=== PATIENT | male | born 1950 | race Caucasian/White ===

== ENCOUNTER 2020-07-16 08:19 | Outpatient (CLI) | payer MEDICARE, OTHER, SELFPAY ==
--- NOTE | 2020-07-23 13:09 | WPDHOMESLEEP ---
Sleep Study - Home Unattended Date of Study: 07/16/20 Ordering Provider: Juan Steward MD Interpreting Provider: Dina Hugo MD Home Sleep Study Type: Apnea Link Air Height: 1.78 m Weight: 104.326 kg Body Mass Index: 33.0 Neck Circumference (inches): 19 [place]: 5 Reason for Sleep Study Nonrestorative sleep, tired in the morning Sleep History Orville Hong is a 70-year-old man who has had poor sleep for 10-15 years. He never feels rested in the morning. He wakes up throughout the night. He has a difficult time waking in the morning. He occasionally snores and occasionally this is loud enough that others complain about it. He does not awaken from sleep feeling short of breath or having heartburn or belching. He does not have trouble sleep with a cold. He does not wake up gasping for breath at night. He rarely has breathing problems at night observed by others. He rarely sweats excessively at night or notices heart pounding or beating irregularly at night. He rarely falls asleep during the day never involuntarily and never while driving. He does not lose muscle tone with strong emotion. He does not have daytime difficulties due to excessive sleepiness. He does not feel paralyzed on waking or falling asleep and does not have vivid dreamlike scenes upon awakening or falling asleep. He does not feel afraid to go to sleep. He rarely has nightmares. He occasionally remembers his dreams. He rarely has racing thoughts. He does not feel sad or depressed. He rarely has anxiety. He really is muscular tension. He does not notice parts of his body jerking. He occasionally kicks at night. He rarely has crawling aching feelings in his legs. He does not have leg pain at night. He denies morning jaw pain and denies grinding his teeth during sleep. He occasionally has bothered by pain during the day. He rarely is awakened by pain at night. He occasionally wakes up feeling stiff in the morning with sore achy muscles. He does not wake up with pain in the neck and spine. He always has difficulty with sexual function. Normal bedtime is midnight, falling asleep within 5-10 minutes, waking 3 or 4 times at night. He rolls over and returns to sleep without problems within a few minutes. He wakes in the morning at 8:00 a.m.. On the weekends, his schedule is the same. He estimates 5 hours of sleep at night during this 8 hour window. He does not take naps. A short nap 10 or 15 minutes long on occasion may be refreshing. Most of the time he feels good the morning. Habits: Quit tobacco 21 years ago. Caffeine 6 8 cups per day. Alcohol 2 or 3 every other day. [facility] Past Medical History Medical History Cataract History of chicken pox History of measles Hypertension Type 2 diabetes mellitus with hyperglycemia Family History Family History (Updated 03/16/20 @ 10:30 by Sana Freitas [facility]) Father Family history of cardiovascular disease Mother No problems noted. Other Diabetes mellitus Family history of Alzheimer's disease Hypertension Social History Social History Smoking end date: 03/26/99 Alcohol intake: current Medications Home Medications Medication Instructions Recorded Confirmed Type fluticasone propionate 50 2 spray NASAL DAILY #9.9 ml 02/17/19 07/21/20 Rx mcg/actuation nasal spray,suspension aspirin 81 mg tablet,delayed 81 mg PO DAILY 02/24/19 07/21/20 History release calcium carb-vit D3-minerals 600 1 tablet PO BID 06/26/19 07/21/20 History mg calcium-400 unit tablet pen needle, diabetic 31 gauge x #400 each 01/01/20 07/21/20 Rx 06/08 metformin 1,000 mg tablet 1,000 mg PO BID 90 Days #180 tablet 01/06/20 07/21/20 Rx fenofibrate nanocrystallized 145 145 mg PO DAILY #90 tablet 02/24/20 07/21/20 Rx mg tablet metoprolol succinate 50 mg 50 mg
[2020-07-23 13:19] VITALS: BMI 33.0
== END 2020-07-16 08:20 | disposition home or self-care (01) ==
LOC: ANHCSM 08:19
PROVIDERS: PCP Family Medicine; Visit Provider Family Medicine
DX: G47.33 Obstructive sleep apnea (adult) (pediatric) (principal); I10 Essential (primary) hypertension; E11.9 Type 2 diabetes mellitus without complications; E66.9 Obesity, unspecified; Z68.33 Body mass index [BMI] 33.0-33.9, adult; Z79.4 Long term (current) use of insulin; Z79.899 Other long term (current) drug therapy
CPT/HCPCS: 95806

== ENCOUNTER → 2020-07-21 11:28 | Outpatient (CLI) | payer MEDICARE, OTHER, SELFPAY ==
--- NOTE | ~2020-07-21 | XR_ITS ---
XR hip RT min 3V w AP pelvis 07/21/2020 12:07 Indication: Right hip pain Procedure: AP pelvis and 2 views right hip Comparison: No prior studies for comparison. Findings: There is mild osteoarthritis of the hips which is symmetric. Pelvic rings are intact. Sacra l foramen are symmetric. No significant soft tissue abnormality. No foreign bodies. Impression: 1: Mild symmetric osteoarthritis of the hips. Reviewed, dictated and finalized at location B. Impression: 1: Mild symmetric osteoarthritis of the hips.
--- NOTE | ~2020-07-21 | XR_ITS ---
EXAMINATION: XR lumbar spine 6V w bending EXAM DATE: 07/21/2020 12:07 INDICATION: M48.062 - Spinal stenosis, lumbar region with neurogenic claudication. TECHNIQUE: Lumber spine frontal, lateral, bilateral oblique projections. Coned down frontal and lat eral L5-S1 lumbar projections for interpretation. Additional lateral flexion and lateral extension p rojections obtained. There are no prior studies for comparison. FINDINGS: No spondylolysis suspected. There is 3-4 mm anterolisthesis L4 on L5 on all the lateral pro jections. The vertebral bodies are otherwise aligned. Mild diffuse lumbar disc disease. Moderate lumb ar facet arthropathy. Moderate scattered aortic arterial sclerosis. Paraspinal soft tissue otherwise unremarkable. Vertebral body heights relatively well-maintained. Sacrum, sacroiliac joints, sacral ar neri lines are intact. IMPRESSION: 1. L4-5 grade 1 anterolisthesis. 2. Moderate facet arthropathy. 3. Mild disc disease. Reviewed, dictated and finalized at location A.
== END ==
PROVIDERS: PCP Family Medicine; Visit Provider Family Medicine
DX: M25.559 Pain in unspecified hip (principal); M48.062 Spinal stenosis, lumbar region with neurogenic claudication; M43.16 Spondylolisthesis, lumbar region; M51.9 Unspecified thoracic, thoracolumbar and lumbosacral intervertebral disc disorder; M12.88 Other specific arthropathies, not elsewhere classified, other specified site; M16.0 Bilateral primary osteoarthritis of hip
CPT/HCPCS: 72114; 73502

== ENCOUNTER → 2020-09-25 06:32 | Outpatient (CLI) | payer MEDICARE, OTHER, SELFPAY ==
[2020-09-25 16:44] LABS: SARS-CoV-2 RNA PCR Negative
== END ==
PROVIDERS: PCP Family Medicine; Visit Provider Family Medicine
DX: R68.89 Other general symptoms and signs (principal); Z20.822 Contact with and (suspected) exposure to COVID-19
CPT/HCPCS: C9803; U0003; U0005

== ENCOUNTER 2021-01-22 09:18 | Emergency (ER) | payer MEDICARE, OTHER, SELFPAY ==
[2021-01-22 09:33] VITALS: BP 152/90; PULSE 91; RESP 18; TEMP 36.8; O2SAT 97
--- NOTE | 2021-01-22 10:03 | ED.URI ---
HPI - URI/Sore Throat General Chief Complaint: Upper Respiratory Infection Stated Complaint: COVID+, congestion Time Seen by Provider: 01/22/21 09:33 Source: patient History of Present Illness HPI Narrative: Patient received had mild cough and congestion for the past few days and did test positive for Covid a couple days ago. Pain first he has a history of diabetes hypertension and elevated cholesterol and is concerned that he might have complications from Covid. He talked his primary care doctor about getting the monoclonal antibody infusion however they were unable to get the order and is now the weekend. He also wanted know if he would be a candidate for any specific medications to help prevent his symptoms from worsening. He reports overall he is feeling pretty good but just wants to be proactive with managing his symptoms. Related Data Home Medications Medication Instructions Recorded Confirmed aspirin 81 mg tablet,delayed 81 mg PO DAILY 02/24/19 10/18/20 release calcium carb-vit D3-minerals 600 1 tablet PO BID 06/26/19 10/18/20 mg calcium-400 unit tablet magnesium 250 mg tablet 250 mg PO DAILY 07/21/20 10/18/20 potassium gluconate 595 mg (99 mg) 595 mg PO DAILY 07/21/20 10/18/20 tablet zinc 50 mg tablet 50 mg PO DAILY 07/21/20 10/18/20 Allergies Allergy/AdvReac Type Severity Reaction Status Date / Time No Known Allergies Allergy Verified 01/22/21 09:38 Review of Systems Review of Systems: CONSTITUTIONAL: Denies fever, chills, or sweats. EYES: Denies visual changes, redness, or discharge. ENT: Reports mild congestion and sore throat CARDIOVASCULAR: Denies chest pain, palpitations, or edema. RESPIRATORY: Reports mild cough GASTROINTESTINAL: Denies abdominal pain, nausea, vomiting, or diarrhea. GENITOURINARY: Denies dysuria or hematuria. SKIN: Denies rash or itching. MUSCULOSKELETAL: Denies back pain, joint pain, or myalgia. NEUROLOGIC: Denies headache, numbness, dizziness, or weakness. PSYCHIATRIC: Denies anxiety or depression. All systems reviewed & are unremarkable except as noted in HPI and below [facility] Past Medical History Medical History Cataract Femoral artery stenosis, right Hemoglobin A1C between 7% and 9% indicating borderline diabetic control 07/02/2020 A1c = 7.4 History of chicken pox History of measles Hypertension Type 2 diabetes mellitus with hyperglycemia Family History Family History Father Family history of cardiovascular disease Mother No problems noted. Other Diabetes mellitus Family history of Alzheimer's disease Hypertension Social History Social History Smoking end date: 03/26/99 Alcohol intake: current Gender identity (if verbalized by the patient): Male Exam Narrative: GENERAL: Well-appearing, well-nourished, and in no acute distress. HEAD: Normocephalic, atraumatic. EYES: PERRLA and EOMI. ENT: Nares clear, no rhinorrhea or epistaxis. Mucous membranes moist. NECK: Supple. No masses. No JVD CHEST: Clear to auscultation. No respiratory distress. No wheezes rales or rhonchi HEART: Regular rate and rhythm. No murmur heard. Normal peripheral pulses. EXTREMITIES: Normal range of motion. No edema. SKIN: Warm, dry, no rash. NEURO: No focal deficits. Alert and oriented x3. PSYCH: Normal mood and affect. Course Reevaluation(s) Reevaluation #1: Patient is resting comfortably with normal vital signs. Attempted to contact the infusion center to assist with medical antibiotic therapy however there was no answer. Date: 01/22/21 Time: 10:05 Vital Signs Vital signs: Vital Signs Temperature 36.8 C 01/22/21 09:33 Pulse Rate 91 01/22/21 09:33 Respiratory Rate 18 01/22/21 09:33 Blood Pressure 152/90 H 01/22/21 09:33 Pulse Oximetry 97 01/22/21 09:33 Te
== END 2021-01-22 10:14 | disposition home or self-care (01) ==
PROVIDERS: Emergency Provider Emergency Medicine; PCP Family Medicine
DX: U07.1 COVID-19 (principal); E11.9 Type 2 diabetes mellitus without complications; I10 Essential (primary) hypertension; I70.201 Unspecified atherosclerosis of native arteries of extremities, right leg; H26.9 Unspecified cataract; Z79.82 Long term (current) use of aspirin; Z79.84 Long term (current) use of oral hypoglycemic drugs; Z79.4 Long term (current) use of insulin; Z87.891 Personal history of nicotine dependence
CPT/HCPCS: 99281

== ENCOUNTER 2021-01-24 10:22 | Outpatient (RCR) | payer MEDICARE, OTHER, SELFPAY ==
[2021-01-24] MEDS: diphenhydrAMINE HCl CAP 25 MG CAPSULE PO (10:44)
[2021-01-24] MEDS: FAMOTIDINE 20 MG TABLET PO (10:44)
[2021-01-24] MEDS: ACETAMINOPHEN 325 MG TABLET 650 MG PO (10:44)
[2021-01-24 10:50] VITALS: BP 132/64; PULSE 62; RESP 16; TEMP 36.1; O2SAT 97
[2021-01-24 12:22] VITALS: BP 143/74; PULSE 75; RESP 20; TEMP 36.3; O2SAT 97
== END 2021-01-24 15:54 | disposition home or self-care (01) ==
LOC: AMCINF 10:22
PROVIDERS: PCP Physician Assistant Medical; Referring Provider Physician Assistant Medical; Visit Provider Internal Medicine Hematology & Oncology
DX: Z23 Encounter for immunization (principal); U07.1 COVID-19; I10 Essential (primary) hypertension; I25.10 Atherosclerotic heart disease of native coronary artery without angina pectoris; E11.9 Type 2 diabetes mellitus without complications
CPT/HCPCS: A9270; M0243; Q0243

== ENCOUNTER 2021-05-03 00:20 | Day surgery (SDC) | payer MEDICARE, OTHER, SELFPAY ==
[2021-04-20 13:42] VITALS: BMI 33.8
[2021-05-03 09:09] VITALS: BP 161/90; PULSE 79; RESP 20; TEMP 36.1; O2SAT 94
--- NOTE | 2021-05-03 09:09 | WPDGICN ---
Assessment and Plan Assessment and plan (1) History of colon polyps: Code(s): Z86.010 - Personal history of colonic polyps Status: Acute Assessment and Plan: Patient has a history of colon polyps. Most recently by colonoscopy 2017. Plan is for surveillance colonoscopy now and at 5 year intervals in the future. GI Consult Note Consult date/time: 05/03/21 09:09 HPI: Orville Hong is a 70 year old male Presents for colonoscopy. Patient has a history of colon polyps 5 years ago at last colonoscopy. Patient reports his current weight appetite and bowel movements are normal. He denies abdominal pain. He has had no bleeding. Family history is noncontributory. Patient reports in the last 5 years he has had some stents in his iliac arteries because of peripheral vascular disease. Review of Systems Review of Systems: All systems reviewed & are unremarkable except as noted in HPI and below [facility] Past Medical History Medical History Cataract Femoral artery stenosis, right Hemoglobin A1C between 7% and 9% indicating borderline diabetic control 07/02/2020 A1c = 7.4 History of chicken pox History of measles Hypertension Presence of stent in artery (~10/26/20) right iliac Type 2 diabetes mellitus with hyperglycemia Family History Family History Father Family history of cardiovascular disease Mother No problems noted. Other Diabetes mellitus Family history of Alzheimer's disease Hypertension Social History Social History Smoking status: Former smoker Tobacco type: cigarettes Smoking end date: 03/26/99 Alcohol intake: current Drinks per week: 7 Living arrangements: alone Gender identity (if verbalized by the patient): Male Spiritual care concerns: No Meds Home Medications and Allergies Home Medications Medication Instructions Recorded Confirmed Type aspirin 81 mg tablet,delayed 81 mg PO DAILY 02/24/19 04/20/21 History release calcium carb-vit D3-minerals 600 1 tablet PO BID 06/26/19 04/20/21 History mg calcium-400 unit tablet pen needle, diabetic 31 gauge x #400 each 01/01/20 04/20/21 Rx 3/16 quinapril 40 mg tablet 40 mg PO DAILY #90 tablet 04/01/20 04/20/21 Rx trazodone 100 mg tablet 200 mg PO DAILY #180 tablet 06/17/20 04/20/21 Rx magnesium 250 mg tablet 250 mg PO DAILY 07/21/20 04/20/21 History zinc 50 mg tablet 50 mg PO DAILY 07/21/20 04/20/21 History fluticasone propionate 50 2 spray NASAL DAILY #9.9 ml 09/24/20 04/20/21 Rx mcg/actuation nasal spray,suspension metformin 1,000 mg tablet 1,000 mg PO BID 90 Days #180 tablet 10/07/20 04/20/21 Rx insulin lispro 100 unit/mL 10 - 25 unit SUBCUT TIDWMEAL 90 11/24/20 04/20/21 Rx subcutaneous pen Days #67.5 ml metoprolol succinate 50 mg 50 mg PO DAILY #90 tablet 11/24/20 04/20/21 Rx tablet,extended release 24 hr blood sugar diagnostic #400 ea 12/27/20 04/20/21 Rx meloxicam 15 mg tablet 15 mg PO DAILY #90 tablet 01/05/21 04/20/21 Rx empagliflozin 25 mg tablet 25 mg PO QAM #90 tablet 01/26/21 04/20/21 Rx fenofibrate nanocrystallized 145 See Rx Instructions .ROUTE 02/28/21 04/20/21 Rx mg tablet .COMPLEX #90 tablet insulin glargine U-300 conc 300 100 unit SUBCUT DAILY #6 ml 02/28/21 04/20/21 Rx unit/mL (3 mL) subcutaneous pen blood-glucose meter,continuous #1 ea 03/02/21 04/20/21 Rx blood-glucose sensor #3 ea 03/02/21 04/20/21 Rx blood-glucose transmitter #1 ea 03/02/21 04/20/21 Rx blood-glucose transmitter #1 ea 03/02/21 04/20/21 Rx rosuvastatin 40 mg tablet 40 mg PO .HS #90 tablet 03/28/21 04/20/21 Rx triamterene 37.5 1 cap PO DAILY #90 cap 03/28/21 04/20/21 Rx mg-hydrochlorothiazide 25 mg capsule potassium 99 mg PO DAILY 04/20/21 04/20/21 History Allergies Allergy/AdvReac Type Severity Reac
[2021-05-03] MEDS: LACTATED RINGERS 1,000 ML 150 ML IV CONT (09:23)
[2021-05-03 09:25] LABS: Glucose Point of Care 101 mg/dl (65-105)
--- NOTE | 2021-05-03 09:32 | WPDANESEPPF ---
Anes - Initial Pre Proc Eval Procedure: Operation Date: 05/03/21 10:15 Proposed Procedures p Screening Colonoscopy - Mj Soliz MD Date/Time: 05/03/21 09:32 Surgeon: Mj Soliz MD Pre Op Diagnosis: hx of colon polyps Patient Data Age: 70 Gender: M Height: 1.78 m Weight: 106.3 kg Last Vital Signs Temp 96.9 F L 05/03/21 09:09 Pulse 79 05/03/21 09:09 Resp 20 05/03/21 09:09 BP 161/90 H 05/03/21 09:09 Pulse Ox 94 05/03/21 09:09 Allergies Allergy/AdvReac Type Severity Reaction Status Date / Time No Known Allergies Allergy Verified 05/03/21 09:07 Home Medications Medication Instructions Recorded Confirmed Type aspirin 81 mg tablet,delayed 81 mg PO DAILY 02/24/19 04/20/21 History release calcium carb-vit D3-minerals 600 1 tablet PO BID 06/26/19 04/20/21 History mg calcium-400 unit tablet pen needle, diabetic 31 gauge x #400 each 01/01/20 04/20/21 Rx 3/16 quinapril 40 mg tablet 40 mg PO DAILY #90 tablet 04/01/20 04/20/21 Rx trazodone 100 mg tablet 200 mg PO DAILY #180 tablet 06/17/20 04/20/21 Rx magnesium 250 mg tablet 250 mg PO DAILY 07/21/20 04/20/21 History zinc 50 mg tablet 50 mg PO DAILY 07/21/20 04/20/21 History fluticasone propionate 50 2 spray NASAL DAILY #9.9 ml 09/24/20 04/20/21 Rx mcg/actuation nasal spray,suspension metformin 1,000 mg tablet 1,000 mg PO BID 90 Days #180 tablet 10/07/20 04/20/21 Rx insulin lispro 100 unit/mL 10 - 25 unit SUBCUT TIDWMEAL 90 11/24/20 04/20/21 Rx subcutaneous pen Days #67.5 ml metoprolol succinate 50 mg 50 mg PO DAILY #90 tablet 11/24/20 04/20/21 Rx tablet,extended release 24 hr blood sugar diagnostic #400 ea 12/27/20 04/20/21 Rx meloxicam 15 mg tablet 15 mg PO DAILY #90 tablet 01/05/21 04/20/21 Rx empagliflozin 25 mg tablet 25 mg PO QAM #90 tablet 01/26/21 04/20/21 Rx fenofibrate nanocrystallized 145 See Rx Instructions .ROUTE 02/28/21 04/20/21 Rx mg tablet .COMPLEX #90 tablet insulin glargine U-300 conc 300 100 unit SUBCUT DAILY #6 ml 02/28/21 04/20/21 Rx unit/mL (3 mL) subcutaneous pen blood-glucose meter,continuous #1 ea 03/02/21 04/20/21 Rx blood-glucose sensor #3 ea 03/02/21 04/20/21 Rx blood-glucose transmitter #1 ea 03/02/21 04/20/21 Rx blood-glucose transmitter #1 ea 03/02/21 04/20/21 Rx rosuvastatin 40 mg tablet 40 mg PO .HS #90 tablet 03/28/21 04/20/21 Rx triamterene 37.5 1 cap PO DAILY #90 cap 03/28/21 04/20/21 Rx mg-hydrochlorothiazide 25 mg capsule potassium 99 mg PO DAILY 04/20/21 04/20/21 History Laboratory Tests 05/03/21 09:18 POC Capillary Glucose 101 mg/dl mg/dl (65-105) Patient hx anesthesia problems: none Family hx anesthesia problems: none Results Review: All pre-operative results and documents have been reviewed as part of the pre-operative evaluation. [facility] Past Medical History Medical History Cataract Femoral artery stenosis, right Hemoglobin A1C between 7% and 9% indicating borderline diabetic control 07/02/2020 A1c = 7.4 History of chicken pox History of measles Hypertension Presence of stent in artery (~10/26/20) right iliac Type 2 diabetes mellitus with hyperglycemia Family History Family History Father Family history of cardiovascular disease Mother No problems noted. Other Diabetes mellitus Family history of Alzheimer's disease Hypertension Social History Social History Smoking status: Former smoker Tobacco type: cigarettes Smoking end date: 03/26/99 Alcohol intake: current Drinks per week: 7 Living arrangements: alone Gender identity (if verbalized by the patient): Male Spiritual care concerns: No Anes - Eval Final PreProcedure Day of Procedure 05/03/21 09:32 Patient weight: obese Heart: regular rate and rhythm
[2021-05-03 10:16] VITALS: BP 121/79; PULSE 69; RESP 16; O2SAT 96
[2021-05-03 10:26] VITALS: BP 149/89; PULSE 68; RESP 19; O2SAT 97
[2021-05-03 10:32] LABS: Glucose Point of Care 91 mg/dl (65-105)
[2021-05-03 10:32] LABS: Glucose Point of Care 65 mg/dl (65-105)
[2021-05-03 10:36] VITALS: BP 162/86; PULSE 66; RESP 21; O2SAT 96
== END 2021-05-03 10:48 | disposition home or self-care (01) ==
PROVIDERS: PCP Family Medicine; Visit Provider Internal Medicine Gastroenterology
PROC: 0DJD8ZZ Inspection of Lower Intestinal Tract, Via Natural or Artificial Opening Endoscopic (ICD-10-PCS; CPT 45378; principal; 2021-05-03 10:15)
DX: Z12.11 Encounter for screening for malignant neoplasm of colon (principal); D12.2 Benign neoplasm of ascending colon; D12.4 Benign neoplasm of descending colon; K57.30 Diverticulosis of large intestine without perforation or abscess without bleeding; K64.8 Other hemorrhoids; I10 Essential (primary) hypertension; E11.9 Type 2 diabetes mellitus without complications; Z87.891 Personal history of nicotine dependence; Z79.82 Long term (current) use of aspirin; Z79.4 Long term (current) use of insulin; Z79.84 Long term (current) use of oral hypoglycemic drugs
CPT/HCPCS: 45380; 82948; 88305; J2704; J7120

== ENCOUNTER 2021-12-25 10:35 | Emergency (ER) | payer MEDICARE, OTHER, SELFPAY ==
[2021-12-25 10:43] VITALS: BP 149/82; PULSE 84; RESP 16; TEMP 36.2; O2SAT 96
[2021-12-25 11:16] LABS: Basophils Absolute Auto 0.1 K/mm3 (0.0-0.1); Basophils Percent Auto 0.5 % (0.2-1.2); Eosinophils Absolute Auto 0.1 K/mm3 (0-0.3); Eosinophils Percent Auto 0.7 % (0-4.4); Hematocrit 49.6 % (42.0-52.0); Hemoglobin 16.5 g/dL (14.0-18.0); Immature Granulocyte Absolute 0.06 K/mm3 (0.00-0.031); Immature Granulocyte Percent A 0.6 % (0-0.5); Lymphocytes Absolute Auto 1.68 K/mm3 (0.9-3.2); Lymphocytes Percent Auto 15.4 % (18.3-44.2); Mean Corpuscular HGB Conc 33.3 g/dl (32-36); Mean Corpuscular Hemoglobin 27.3 pg (26-34); Mean Corpuscular Volume 82.1 fl (80-100); Monocytes Absolute Auto 1.1 K/mm3 (0.1-0.6); Monocytes Percent Auto 9.7 % (2.6-8.5); Neutrophils Percent Auto 73.1 % (45.5-73.1); Platelet Count Result 361 k/mm3 (150-375); Red Blood Count 6.04 M/mm3 (4.6-6.20); Red Cell Distribution Width 14.5 % (11.5-14.5); White Blood Count 10.9 K/mm3 (4.5-10.0)
[2021-12-25] MEDS: KETOROLAC 30 MG/ML VIAL (*BKC) IV PUSH (11:20)
[2021-12-25] MEDS: diazePAM INJ (*CRX) 10 MG/2 ML SYRINGE 5 MG IV PUSH (11:20)
[2021-12-25 11:35] LABS: Anion Gap 13 mmol/L (8-16); Blood Urea Nitrogen 26 mg/dL (9-20); Calcium 10.8 mg/dL (8.4-10.2); Carbon Dioxide 26 mmol/L (22-30); Chloride 100 mmol/L (98-107); Estimated CRCL calculation 74 ml/min; Estimated Glomerular Filt Rate > 60; Glucose 115 mg/dL (65-110); Potassium 4.5 mmol/L (3.4-5.0); Sodium 139 mmol/L (137-145)
[2021-12-25] MEDS: SODIUM CHLORIDE 0.9% IV 1,000 ML 999 ML IV CONT (11:51)
--- NOTE | 2021-12-25 12:48 | ED.BACK ---
HPI - Back Pain/Injury General Chief Complaint: Back Pain/Injury Stated Complaint: Lower Back Pain, Right Flank Pain Time Seen by Provider: 12/25/21 10:41 History of Present Illness HPI Narrative: Patient is a 71-year-old male who presents ER with low back pain. Reports its been slowly increasing in pain over the last couple of days. Worse with bending over and trying to walk. No radiation of pain down legs. No lower extremity numbness or tingling. No difficulty with urination/defecation. Originally symptoms started when he was diagnosed with pneumonia and started on antibiotics. He been coughing frequently been getting body aches and backaches. Since then is just progressively increased. Denies any fall or injury. Related Data Home Medications Medication Instructions Recorded Confirmed aspirin 81 mg tablet,delayed 81 mg PO DAILY 02/24/19 09/28/21 release (Adult Aspirin Regimen) magnesium 250 mg tablet 250 mg PO DAILY 07/21/20 09/28/21 zinc 50 mg tablet 50 mg PO DAILY 07/21/20 09/28/21 potassium 99 mg tablet 99 mg PO DAILY 04/20/21 09/28/21 Allergies Allergy/AdvReac Type Severity Reaction Status Date / Time No Known Allergies Allergy Verified 12/14/21 10:14 Review of Systems Review of Systems: All systems reviewed & are unremarkable except as noted in HPI and below Constitutional: Constitutional: Denies chills, Denies fatigue and Denies fever(s) ENT: Reports nasal congestion and Reports sore throat Cardiovascular: Cardiovascular: Denies chest pain, Denies rapid heart rate and Denies radiating jaw, neck or arm pain Respiratory: Respiratory: Reports cough, Denies dyspnea and Denies wheezing Gastrointestinal: Gastrointestinal: Denies abdominal pain and Denies nausea Musculoskeletal: Musculoskeletal: Reports back pain, Denies arthralgias and Denies joint swelling Neurologic: Denies focal weakness and Denies numbness [facility] Past Medical History Medical History Basal cell carcinoma, face Cataract Claudication in peripheral vascular disease Dermatofibroma Essential hypertension Femoral artery stenosis, right Hemoglobin A1C between 7% and 9% indicating borderline diabetic control 07/02/2020 A1c = 7.4 History of chicken pox History of colon polyps History of measles Hypertension Hypertriglyceridemia Melanocytic nevi of trunk Neurogenic claudication due to lumbar spinal stenosis Obesity Obstructive sleep apnea Presence of stent in artery (~10/26/20) right iliac Sacroiliac joint dysfunction of right side Type 2 diabetes mellitus with hyperglycemia Surgical History Surgical History History of intravascular stent placement 10/2020, femoral artery Family History Family History Father Family history of cardiovascular disease Mother No problems noted. Other Diabetes mellitus Family history of Alzheimer's disease Hypertension Social History Social History Smoking status: Former smoker Tobacco type: cigarettes Smoking end date: 03/26/99 Alcohol intake: current Drinks per week: 7 Gender identity (if verbalized by the patient): Male Spiritual care concerns: No Exam Narrative: GENERAL: Well-appearing, well-nourished, and in no acute distress. HEAD: Normocephalic, atraumatic. CHEST: Clear to auscultation. No respiratory distress. HEART: Regular rate and rhythm. Normal peripheral pulses. Back: No reproducible midline tenderness the T/L-spine. There is reproducible paraspinal tenderness bilaterally in the lumbar region. EXTREMITIES: Normal range of motion. No edema. SKIN: Warm, dry, no rash. NEURO: Alert and oriented x3. PSYCH: Normal mood and affect. Course Course Emergency Course: Significant improvement in p
--- NOTE | 2021-12-25 13:20 | PC.NURSE ---
Patient reports his low back pain is better, however he has pain on his right side that has not gone away.
[2021-12-25 13:50] VITALS: BP 166/78; PULSE 71; RESP 20; O2SAT 95
== END 2021-12-25 13:51 | disposition home or self-care (01) ==
PROVIDERS: Emergency Provider Emergency Medicine; PCP Family Medicine
DX: M54.50 Low back pain, unspecified (principal); I10 Essential (primary) hypertension; G47.33 Obstructive sleep apnea (adult) (pediatric); E78.1 Pure hyperglyceridemia; M48.062 Spinal stenosis, lumbar region with neurogenic claudication; E11.51 Type 2 diabetes mellitus with diabetic peripheral angiopathy without gangrene; Z95.820 Peripheral vascular angioplasty status with implants and grafts; Z87.891 Personal history of nicotine dependence; E66.9 Obesity, unspecified; Z68.32 Body mass index [BMI] 32.0-32.9, adult; Z79.4 Long term (current) use of insulin; Z79.82 Long term (current) use of aspirin; Z79.84 Long term (current) use of oral hypoglycemic drugs
CPT/HCPCS: 36415; 80048; 85025; 96361; 96374; 96375; 99284; J1885; J3360; J7030

== ENCOUNTER → 2021-12-27 14:20 | Outpatient (CLI) | payer MEDICARE, OTHER, SELFPAY ==
--- NOTE | ~2021-12-27 | XR_ITS ---
XR lumbar spine 2-3V 12/27/2021 14:53 Indication: Low back pain Procedure: 3 views lumbar spine Comparison: 07/21/2020 Findings: There is loss of disc height at all lumbar levels. There is grade 1 degenerative spondyloli sthesis at L4-5. There is moderate lower lumbar facet hypertrophy. There is mild dextroscoliosis of t he lumbar spine. No acute fracture or traumatic malalignment. There are stents in the iliac arteries. Impression: 1: Moderate lumbar spondylosis. Reviewed, dictated and finalized at location B. Impression: 1: Moderate lumbar spondylosis.
--- NOTE | ~2021-12-27 | XR_ITS ---
EXAMINATION: XR thoracic spine 3V DATE: 12/27/2021 14:53 INDICATION: Mid to lower back pain. Pneumonia. TECHNIQUE: One AP, lateral and lateral swimmer's views of the thoracic spine were obtained. COMPARISON: None. FINDINGS: 7 degrees upper thoracic levocurvature, for degree lower thoracic levocurvature and 5 degrees interve rohith mid thoracic dextrocurvature. Sagittal alignment is normal. Thoracic vertebral body heights are normal. Mild disc height loss at multiple levels in the thoracic spine with lower thoracic predominan ce. Prominent anterior osteophytes at T9-T10. Vertebral soft tissues are unremarkable. Consolidation in the posterior segment of the left upper lobe consistent with pneumonia. IMPRESSION: 1. Minimal S-shaped curvature of the thoracic spine with mild thoracic spondylosis. 2. Left upper lobe pneumonia. Reviewed, dictated and finalized at location A. IMPRESSION: 1. Minimal S-shaped curvature of the thoracic spine with mild thoracic spondylo sis. 2. Left upper lobe pneumonia.
--- NOTE | ~2021-12-27 | XR_ITS ---
XR chest 2V 12/27/2021 14:53 Indication: Cough Procedure: 2 view chest Comparison: No prior studies for comparison. Findings: There is patchy left-sided airspace disease. There are nodular densities in the left upper lobe as well. Heart size normal. There is atherosclerosis. No pleural effusion or pneumothorax. No ac irais osseous abnormality. Impression: 1: Nodular densities left upper thorax. Follow-up CT chest recommended. 2: Patchy left-sided airspace disease, compatible with pneumonia. Reviewed, dictated and finalized at location A. Impression: 1: Nodular densities left upper thorax. Follow-up CT chest recommended. 2: Patchy left-sided airspace disease, compatible with pneumonia.
== END ==
PROVIDERS: PCP Physician Assistant; Visit Provider Physician Assistant
DX: J18.9 Pneumonia, unspecified organism (principal); M47.894 Other spondylosis, thoracic region; M47.896 Other spondylosis, lumbar region; R91.8 Other nonspecific abnormal finding of lung field
CPT/HCPCS: 71046; 72072; 72100

== ENCOUNTER 2021-12-29 12:51 | Outpatient (CLI) | payer MEDICARE, OTHER, SELFPAY ==
--- NOTE | ~2021-12-29 | CT_ITS ---
EXAMINATION: CT diagnostic chest w con DATE: 12/29/2021 13:16 INDICATION: Chest pain. Pulmonary nodules. TECHNIQUE: Computed tomography (CT) of the chest was performed with 75 cc Omnipaque 350 intravenous c ontrast. The dose-length product was 350.07 mGy-cm. Automated exposure control and iterative reconstr uction technique were employed. COMPARISON: None FINDINGS: There is mediastinal and bilateral hilar lymphadenopathy. There is focal consolidation of t he left upper lobe which may represent atelectasis or pneumonia. Centrally obstructing lesion not exc luded. There is atherosclerosis of the aorta without evidence for aneurysm or dissection. There is a 1 cm nodule in the left upper lobe anterior medially. There is a calcified granuloma in th e lingula. No pneumothorax. Fatty infiltration of the liver. The spleen, pancreas, adrenal glands are unremarkable. There is athe rosclerosis of the aorta. IMPRESSION: 1. Focal left upper lobe consolidation abutting the fissure extending to the hilum. Centrally obstruc ting mass not excluded. Recommend pulmonology consultation. 2: Left upper lobe 1 cm nodule, image 71. Consider follow-up evaluation with pet/CT examination. 3: Mediastinal and bilateral hilar lymphadenopathy, nonspecific. Reviewed, dictated and finalized at location A. IMPRESSION: 1. Focal left upper lobe consolidation abutting the fissure extending to the hi lum. Centrally obstructing mass not excluded. Recommend pulmonology consultatio n. 2: Left upper lobe 1 cm nodule, image 71. Consider follow-up evaluation with pe t/CT examination. 3: Mediastinal and bilateral hilar lymphadenopathy, nonspecific.
== END 2021-12-29 12:52 | disposition home or self-care (01) ==
PROVIDERS: PCP Family Medicine; Visit Provider Physician Assistant
DX: R05.9 Cough, unspecified (principal); R91.1 Solitary pulmonary nodule; R59.0 Localized enlarged lymph nodes
CPT/HCPCS: 71260; Q9967

== ENCOUNTER 2022-01-02 07:44 | Inpatient (IN) | payer MEDICARE, OTHER, SELFPAY ==
[2022-01-02] VITALS (7 sets, daily range): BP systolic 154–181; BP diastolic 87–97; PULSE 78–125; RESP 14–28; TEMP 36.3–37.3; O2SAT 90–93
--- NOTE | ~2022-01-02 | XR_ITS ---
EXAMINATION: XR chest 1V portable DATE: 01/07/2022 14:09 INDICATION: Fever. TECHNIQUE: A single frontal view of the chest was obtained. COMPARISON: Chest single view 01/05/2022, chest CT 01/02/2022 FINDINGS: There are airspace opacities in left mid and upper lung zones. There is mild atelectasis in the lower lung zones. No pleural effusion or pneumothorax. The heart size is normal. IMPRESSION: 1. Stable airspace opacities in left mid and upper lung zones, consistent with pneumonia and malignan cy. Reviewed, dictated and finalized at location A. IMPRESSION: 1. Stable airspace opacities in left mid and upper lung zones, consistent with pneumonia and malignancy.
--- NOTE | ~2022-01-02 | MR_ITS ---
EXAMINATION: MR brain/brain stem wo con DATE: 01/06/2022 15:33 INDICATION: Lung mass. TECHNIQUE: Magnetic resonance imaging (MRI) of the brain and brainstem was performed without intraven ous contrast. COMPARISON: Head CT 01/03/2022 FINDINGS: There are scattered areas of nonspecific increased T2-weighted signal intensity in the cere bral white matter, which is within normal limits for the patient's age. There is no intracranial hemo rrhage, acute infarction, or abnormal intracranial mass lesion. The ventricles are normal in size. Th ere is a small right mastoid effusion. The orbits are normal. The paranasal sinuses are clear. IMPRESSION: 1. Normal aging brain. Reviewed, dictated and finalized at location A. IMPRESSION: 1. Normal aging brain.
--- NOTE | ~2022-01-02 | US_ITS ---
EXAMINATION: US biopsy lymph node DATE: 01/03/2022 13:32 INDICATION: Left supraclavicular lymphadenopathy. TECHNIQUE: The procedure including the risks, benefits, and alternatives was discussed with the patie nt. Risks discussed included bleeding and infection. The patient understood the risks and agreed to p roceed. The skin overlying the left supraclavicular region was prepped and draped in usual sterile fa shion. Anesthetic was administered with 1% lidocaine subcutaneously. An 18 gauge core biopsy needle was then used to obtain 3 core biopsy specimens under continuous sonographic guidance. The entry sit e was cleaned and dressed. There were no immediate complications. FINDINGS: Ultrasound images demonstrate the needle in a left supraclavicular lymph node. IMPRESSION: 1. Ultrasound-guided core needle biopsy of a left supraclavicular lymph node. Reviewed, dictated and finalized at location A.
--- NOTE | ~2022-01-02 | MR_ITS ---
EXAMINATION: MR cervical spine wo con DATE: 01/06/2022 15:33 INDICATION: Metastatic disease to the spine. TECHNIQUE: Magnetic resonance imaging (MRI) of the cervical spine was performed without intravenous c ontrast. COMPARISON: CT cervical spine 01/03/2022 FINDINGS: There is 4 degrees levocurvature of cervicothoracic spine. Vertebral body heights are jojo l. There are widespread lesions of bone marrow replacement involving most bones. There is severely de creased disc height at C5-C6. The spinal cord signal intensity is normal. The following disc levels a re specifically discussed: C2-C3: The disc does not extend beyond the endplate margin. There is ankylosis of the uncovertebral j oints without hypertrophy. There is mild left facet joint osteoarthritis. There is ankylosis of right facet joint with severe hypertrophy. There is no neural foraminal stenosis. There is no central pablo l stenosis. C3-C4: The disc does not extend beyond the endplate margin. There is mild right and moderate left unc overtebral joint osteoarthritis. There is severe bilateral facet joint osteoarthritis. There is mild right and moderate left neural foraminal stenosis. There is no central canal stenosis. C4-C5: The disc does not extend beyond the endplate margin. There is moderate right and mild left unc overtebral joint osteoarthritis. There is severe bilateral facet joint osteoarthritis. There is mild bilateral neural foraminal stenosis. There is no central canal stenosis. C5-C6: The disc is bulging. There is severe bilateral uncovertebral joint osteoarthritis. There is mo derate right and severe left facet joint osteoarthritis. There is moderate right and mild left neural foraminal stenosis. There is mild central canal stenosis. C6-C7: The disc does not extend beyond the endplate margin. There is mild lateral uncovertebral joint osteoarthritis. There is severe bilateral facet joint osteoarthritis. There is mild bilateral neural foraminal stenosis. There is no central canal stenosis. C7-T1: The disc does not extend beyond the endplate margin. There is no uncovertebral joint osteoarth ritis. There is severe bilateral facet joint osteoarthritis. There is mild bilateral neural foraminal stenosis. There is no central canal stenosis. IMPRESSION: 1. Widespread bone lesions, consistent with metastatic disease. 2. Severe cervical spondylosis. Reviewed, dictated and finalized at location A.
--- NOTE | ~2022-01-02 | XR_ITS ---
EXAMINATION: XR chest 1V portable DATE: 01/05/2022 06:07 INDICATION: Shortness of breath. TECHNIQUE: A single frontal view of the chest was obtained. COMPARISON: Chest single view 01/04/2022, chest CT 01/02/2022 FINDINGS: There is mild atelectasis in the lower lung zones. There are airspace opacities in left mid and upper lung zones. No pleural effusion or pneumothorax. The heart size is normal. IMPRESSION: 1. Stable airspace opacities in left mid and upper lung zones, likely a combination of pneumonia and malignancy. Reviewed, dictated and finalized at location A. IMPRESSION: 1. Stable airspace opacities in left mid and upper lung zones, likely a combina tion of pneumonia and malignancy.
--- NOTE | ~2022-01-02 | US_ITS ---
EXAMINATION: US venous doppler [facility] DATE: 01/05/2022 11:18 INDICATION: Shortness of breath. Tachycardia TECHNIQUE: Grayscale ultrasound images without and with compression and Doppler ultrasound images of the bilateral lower extremity veins were obtained. COMPARISON: None. FINDINGS: The visualized portions of right common femoral vein, profunda (deep) femoral vein, femoral vein, pop liteal vein, posterior tibial veins, peroneal veins, gastrocnemius vein and greater saphenous vein ou tflow are patent. The visualized portions of left common femoral vein, profunda femoral vein, femoral vein, popliteal v ein, posterior tibial veins, peroneal veins, gastrocnemius vein and greater saphenous vein outflow ar e patent. IMPRESSION: 1. No deep venous thrombosis in either lower limb. Reviewed, dictated and finalized at location B.
--- NOTE | ~2022-01-02 | CT_ITS ---
EXAMINATION: CTA chest PE abdomen pel DATE: 01/02/2022 10:03 INDICATION: Abdominal pain. Back pain. TECHNIQUE: Computed tomography angiography (CTA) of the chest was performed with 100 mL Omnipaque-350 intravenous contrast timed to evaluate the pulmonary arteries. Coronal maximum intensity projection 3D-reconstructions were created by the technologist. Computed tomography (CT) of the abdomen and pelv is was performed with intravenous contrast. Automated exposure control and iterative reconstruction t echnique were employed. The dose-length product was 614.40 mGy-cm. COMPARISON: Chest CT 12/29/2021 FINDINGS: CTA chest: There is mild emphysema. There is mild scarring at right lung apex. There is mild atelecta sis bilaterally. There are airspace opacities in apicoposterior segment left upper lobe, consistent w ith pneumonia. The heart size is normal. No pericardial effusion. There are coronary artery calcifica tions. There is no pulmonary embolus. There is an ill-defined left hilar mass with mass effect on the pulmonary arteries. There is no pulmonary embolus. There is mediastinal and left supraclavicular lym phadenopathy. There is a left subarticular and measures 2.2 x 1.7 cm. There are widespread lytic lesi ons of bone, consistent with metastatic disease. There is a pathologic compression fracture of T3. Th ere is a pathologic fracture of left first rib. There is a pathologic fracture of left T9 transverse process. CT abdomen and pelvis: The liver, gallbladder, spleen, pancreas, adrenal glands, and right kidney are normal. There is a 15 mm cyst in left kidney. The bladder is markedly distended. The prostate is mil dly enlarged. There is a right inguinal hernia containing fat. There is diverticulosis of the colon w ithout evidence of diverticulitis. The appendix is normal. There are no pathologically enlarged lymph nodes. There is no free intraperitoneal fluid. There are widespread lytic lesions of bone. IMPRESSION: 1. Ill-defined left hilar mass, consistent with primary bronchogenic carcinoma. 2. Mediastinal and left supraclavicular lymphadenopathy and widespread lytic lesions of bone with mul tiple pathologic fractures, consistent with metastatic disease. Ultrasound-guided core needle biopsy of a left supraclavicular lymph node is recommended. 3. Postobstructive pneumonia in left upper lobe. 4. No pulmonary embolus. Reviewed, dictated and finalized at location A. IMPRESSION: 1. Ill-defined left hilar mass, consistent with primary bronchogenic carcinoma. 2. Mediastinal and left supraclavicular lymphadenopathy and widespread lytic le sions of bone with multiple pathologic fractures, consistent with metastatic di sease. Ultrasound-guided core needle biopsy of a left supraclavicular lymph nod e is recommended. 3. Postobstructive pneumonia in left upper lobe. 4. No pulmonary embolus.
--- NOTE | ~2022-01-02 | XR_ITS ---
EXAMINATION: XR thoracic spine 3V DATE: 01/06/2022 13:54 INDICATION: Metastatic disease. TECHNIQUE: Standing AP, lateral and lateral swimmer's views of the thoracic spine were obtained. COMPARISON: CT dated 01/02/2022 FINDINGS: 8 degree thoracic dextrocurvature. Sagittal alignment is normal. Unchanged mild anterior vertebral azra dy height loss at T8 and mild left-sided vertebral body height loss at T7. Additional mild anterior w edging at L1. T2 compression fracture with mild superior and inferior central endplate depression. Th e T3 burst fracture evident on prior CT is not clearly delineated on the provided images. No new comp ression and burst fractures identified. The subtle lytic lesions evident in multiple vertebral bodies on prior CT is also unable to appreciate on plain radiographs. Mild disc height loss at multiple lev els in the lower thoracic spine. IMPRESSION: 1. No evident change in a few compression/burst fractures in the thoracic spine as detailed above. Th e multiple underlying lytic bone lesions are evident on CT which could be due to multiple myeloma or other metastatic disease are not appreciated on the plain radiographs. 2. Mild thoracic dextrocurvature with mild spondylosis. Reviewed, dictated and finalized at location B. IMPRESSION: 1. No evident change in a few compression/burst fractures in the thoracic spine as detailed above. The multiple underlying lytic bone lesions are evident on C T which could be due to multiple myeloma or other metastatic disease are not ap preciated on the plain radiographs. 2. Mild thoracic dextrocurvature with mild spondylosis.
--- NOTE | ~2022-01-02 | MR_ITS ---
EXAMINATION: MR thoracic spine wo con DATE: 01/06/2022 15:33 INDICATION: Bony metastases TECHNIQUE: Magnetic resonance imaging (MRI) of the thoracic spine was performed without intravenous c ontrast. Sagittal localizer T1-weighted FSE of the cervicothoracic spine was obtained. Thoracic spine sequences included sagittal T2-weighted FSE, sagittal T1-weighted SE, Sagittal T2-weighted FS FSE, a nd axial T2-weighted FSE. COMPARISON: None FINDINGS: Mild thoracic dextrocurvature. Sagittal alignment is normal.T3 burst fracture with central depression of the superior and inferior endplates resulting in 1/3 central vertebral body height loss. 2-3 mm a ssociated retropulsion. T2 compression fracture with central depression of the superior and inferior endplates with 40% central vertebral body height loss. Schmorl's node along the inferior endplate of T11. L1 compression fracture with 20% anterior vertebral body height loss. Extensive replacement of t he normal T1 hyperintense marrow signal with T1 hypointense, T2 hyperintense signal throughout multip le vertebral bodies, the posterior elements and multiple ribs corresponding in location to the focal regions of osteolysis on prior CT consistent with widespread osseous metastatic disease. And T1 hyper intense hemangioma in T4. There is mild disc height loss at several levels in the midthoracic spine. No significant central canal or neural foraminal stenosis. There is normal spinal cord signal. 1.4 cm T2 hyperintense left renal cyst. IMPRESSION: 1. Widespread lytic metastatic disease involving multiple vertebral bodies, posterior elements and ri bs. 2. T2 and L1 compression fractures and T3 burst fracture, potentially pathologic. 2. Mild thoracic dextrocurvature with mild spondylosis. Reviewed, dictated and finalized at location B. IMPRESSION: 1. Widespread lytic metastatic disease involving multiple vertebral bodies, pos terior elements and ribs. 2. T2 and L1 compression fractures and T3 burst fracture, potentially pathologi c. 2. Mild thoracic dextrocurvature with mild spondylosis.
--- NOTE | ~2022-01-02 | XR_ITS ---
EXAMINATION: XR chest 1V portable INDICATION: Cough and weakness TECHNIQUE: Portable AP chest at 0905 hours COMPARISON: 12/27/2021 FINDINGS: There are diffuse opacities throughout the lungs, worst in the left mid and lower lung zone s. A small left pleural effusion is suggested. There is no pneumothorax. The cardiomediastinal silhou ette is normal. IMPRESSION: 1. Diffuse lung disease, worst in the left mid and lower lung zones, consistent with pneumonia versus pulmonary edema versus atelectasis. Reviewed, dictated and finalized at location A.
--- NOTE | ~2022-01-02 | CT_ITS ---
EXAMINATION: CT cervical spine wo con DATE: 01/03/2022 13:38 INDICATION: Neck pain. TECHNIQUE: Computed tomography (CT) of the cervical spine was performed without intravenous contrast. Automated exposure control and iterative reconstruction technique were employed. The dose-length pro duct was 429.10 mGy-cm. COMPARISON: None FINDINGS: There is fat stranding in left subclavicular region status post pertains biopsy, consistent with small hematoma. There is 9 degrees levocurvature of cervical spine. Vertebral body heights are normal. There are lytic lesions involving almost all bones, consistent with metastatic disease. There is severely decreased disc height at C5-C6. There is a pathologic fracture of left first rib. The fo llowing disc levels are specifically discussed: C2-C3: There is ankylosis of the uncovertebral joints without hypertrophy. There is ankylosis of the facet joints with severe right and mild left hypertrophy. There is mild bilateral neural foraminal st enosis. There is no central canal stenosis. C3-C4: There is mild right and moderate left uncovertebral joint osteoarthritis. There is severe bila teral facet joint osteoarthritis. There is mild right and moderate left neural foraminal stenosis. Th ere is no central canal stenosis. C4-C5: There is moderate right and mild left uncovertebral joint osteoarthritis. There is severe bila teral facet joint osteoarthritis. There is mild bilateral neural foraminal stenosis. There is no cent ral canal stenosis. C5-C6: There is severe bilateral uncovertebral joint osteoarthritis. There is moderate right and maru re left facet joint osteoarthritis. There is moderate right and mild left neural foraminal stenosis. There is mild central canal stenosis. C6-C7: There is mild bilateral uncovertebral joint osteoarthritis. There is severe bilateral facet mendy int osteoarthritis. There is mild bilateral neural foraminal stenosis. There is no central canal sten osis. C7-T1: There is no uncovertebral joint osteoarthritis. There is severe bilateral facet joint osteoart hritis. There is mild bilateral neural foraminal stenosis. There is no central canal stenosis. IMPRESSION: 1. Widespread lytic lesions of bone, consistent with metastatic disease. 2. Pathologic fracture of left first rib. 3. Severe cervical spondylosis. Reviewed, dictated and finalized at location A.
--- NOTE | ~2022-01-02 | MR_ITS ---
EXAMINATION: MR lumbar spine wo con DATE: 01/06/2022 15:33 INDICATION: Metastatic disease to the spine. TECHNIQUE: Magnetic resonance imaging (MRI) of the lumbar spine was performed without intravenous con trast. Sequences included sagittal T2-weighted FSE, sagittal T2-weighted FS FSE, sagittal T1-weighted FSE, and axial T2-weighted FSE. COMPARISON: CT lumbar spine 01/02/2022 FINDINGS: Bone alignment is normal. There is widespread bone marrow replacement involving all bones. There is a pathologic fracture of L1 with less than 1/5 loss of height. Intervertebral disc heights a re normal. Epidural lipomatosis is noted. The distal spinal cord signal intensity is normal. The conu s medullaris is at T12. The following disc levels are specifically discussed: L1-L2: The disc is mildly bulging. There is severe right and moderate left facet joint osteoarthritis . There is mild bilateral neural foraminal stenosis. There is no central canal stenosis. L2-L3: The disc is bulging. There is severe bilateral facet joint osteoarthritis. There is mild bilat eral neural foraminal stenosis. There is mild central canal stenosis. L3-L4: The disc is bulging. There is severe bilateral facet joint osteoarthritis. There is mild bilat eral neural foraminal stenosis. There is mild central canal stenosis. L4-L5: The disc is bulging. There is severe bilateral facet joint osteoarthritis. There is moderate b ilateral neural foraminal stenosis. There is moderate central canal stenosis. L5-S1: The disc is bulging. There is severe right and moderate left facet joint osteoarthritis. There is mild bilateral neural foraminal stenosis. There is mild central canal stenosis. IMPRESSION: 1. Widespread bone lesions, consistent with metastatic disease. 2. Moderate lumbar spondylosis. Reviewed, dictated and finalized at location A.
--- NOTE | ~2022-01-02 | CT_ITS ---
EXAMINATION: CT thoracic lumbar w con DATE: 01/02/2022 10:03 INDICATION: Back pain. TECHNIQUE: Computed tomography (CT) of the thoracic and lumbar spine was performed with 100 mL Omnipa que 350 intravenous contrast. Automated exposure control and iterative reconstruction technique were employed. The dose-length product was 766.69 mGy-cm. COMPARISON: Chest CT 12/29/2021 FINDINGS: CT THORACIC SPINE: There is 5 degrees dextrocurvature of thoracic spine. There are widespread lytic l esions of bone involving almost all bones, consistent with metastatic disease. There is a pathologic compression fracture of T2 with 2/5 loss of height. There is a pathologic burst fracture of T3 with 1 /5 loss of height and retropulsion of bone 2 mm into central spinal canal. There is a pathologic frac ture of T11 with less than 1/5 loss of height. There is multilevel facet joint osteoarthritis, severe in upper thoracic spine. There is multilevel mild neural foraminal stenosis bilaterally. On the righ t, there is moderate neural foraminal stenosis at C7-T1. There is mild central canal stenosis at T3. CT LUMBAR SPINE: There is 3 mm anterolisthesis of L4 on L5. There are widespread lytic lesions of bon e involving nearly all bones. There is a pathologic compression fracture of L1 with less than 1/5 los s of height. There is a pathologic compression fracture of L2 with 1/5 loss of height. There is mildl y decreased disc height at L1-L2, L3-L4, and L4-L5. The following disc levels are specifically discus sed: L1-L2: The disc is mildly bulging. There is severe right and moderate left facet joint osteoarthritis . There is mild bilateral neural foraminal stenosis. There is no central canal stenosis. L2-L3: The disc is bulging. There is severe bilateral facet joint osteoarthritis. There is mild bilat eral neural foraminal stenosis. There is mild central canal stenosis. L3-L4: The disc is bulging. There is severe bilateral facet joint osteoarthritis. There is mild bilat eral neural foraminal stenosis. There is mild central canal stenosis. L4-L5: The disc is bulging. There is severe bilateral facet joint osteoarthritis. There is moderate b ilateral neural foraminal stenosis. There is moderate central canal stenosis. L5-S1: The disc is bulging. There is severe right and moderate left facet joint osteoarthritis. There is mild bilateral neural foraminal stenosis. There is mild central canal stenosis. IMPRESSION: 1. Widespread lytic lesions of bone with multiple pathologic fractures, consistent with metastatic di sease. 2. Mild thoracic spondylosis and moderate lumbar spondylosis. Reviewed, dictated and finalized at location A. IMPRESSION: 1. Widespread lytic lesions of bone with multiple pathologic fractures, consist ent with metastatic disease. 2. Mild thoracic spondylosis and moderate lumbar spondylosis.
--- NOTE | ~2022-01-02 | XR_ITS ---
EXAMINATION: XR chest 1V portable Exam Date/Time: 01/04/2022 19:40 CDT HISTORY: Wheezing. HX HTN, OBSTRUCTIVE SLEEP APNEA Comparison: X-ray chest and CTPA 01/02/2022. RESULT: Lines, tubes, and devices: None. Lungs and pleura: Unchanged hazy perihilar opacity, improving diffuse reticular opacities. Lingular scar. Cardiomediastinal silhouette: Stable. Other: No acute osseous or upper abdominal finding. IMPRESSION: Left perihilar consolidation consistent with pneumonia. Interval decrease in the mild vascular conges tion/interstitial edema. Reviewed, dictated and finalized at location K. IMPRESSION: Left perihilar consolidation consistent with pneumonia. Interval decrease in th e mild vascular congestion/interstitial edema.
--- NOTE | ~2022-01-02 | CT_ITS ---
EXAMINATION: CT brain wo con DATE: 01/03/2022 13:38 INDICATION: Headache. Neck pain. TECHNIQUE: Computed tomography (CT) of the head was performed without intravenous contrast. The mA wa s adjusted according to patient size. Iterative reconstruction technique was employed. The dose-lengt h product was 605.33 mGy-cm. COMPARISON: None FINDINGS: There is no intracranial hemorrhage, acute infarction, or abnormal intracranial mass lesion . The ventricles are normal in size. There is mild mucosal thickening in the ethmoid sinuses. The mas toid air cells are normal. There are lytic lesions in left posterior skull base and C1. There is a ly tic lesion in right sphenoid. IMPRESSION: 1. Normal brain. 2. Lytic lesions of bone, consistent with metastatic disease. Reviewed, dictated and finalized at location A.
--- NOTE | ~2022-01-02 | XR_ITS ---
EXAMINATION: XR chest 1V portable Exam Date/Time: 01/08/2022 15:15 CDT HISTORY: hypoxia Comparison: 01/07/2022, CTPA 01/02/2022 CT chest 12/29/2021. RESULT: Lines, tubes, and devices: None. Lungs and pleura: Similar left perihilar masslike opacity, segmental upper lung opacity, and nodular opacities. Cardiomediastinal silhouette: Stable. Other: No acute osseous or upper abdominal finding. Known osseous metastases are poorly visualized. IMPRESSION: Unchanged findings of pneumonia and malignancy. Reviewed, dictated and finalized at location K.
--- NOTE | 2022-01-02 08:07 | PC.NURSE ---
Patient has multiple complaints including chest pain,SOB, bilateral upper and lower extremities, and back and neck pain. Patient states he was diagnosed with pneumonia 01/04 and has been getting worse. Patient was seen in the ED last week and was discharged.
--- NOTE | 2022-01-02 08:15 | ECG_ITS ---
Measurements Intervals [place] Rate: 115 P: 56 WI: 143 QRS: -19 QRSD: 94 T: 78 QT: 306 QTc: 424 Interpretive Statements SINUS TACHYCARDIA POSSIBLE LEFT ATRIAL ENLARGEMENT [-0.1mV P WAVE IN V1/V2] NONSPECIFIC ST & T-WAVE ABNORMALITY ABNORMAL RHYTHM ECG NO PREVIOUS ECG AVAILABLE FOR COMPARISON Electronically Signed On 01-03-2022 13:01:13 CDT by Jannet Bernal M.D.
[2022-01-02] MEDS: SODIUM CHLORIDE 0.9% IV 1,000 ML 999 ML IV CONT (08:21)
[2022-01-02] MEDS: MORPHINE SULFATE (*CRX) 4 MG/ML INJ IV PUSH (08:21)
--- NOTE | 2022-01-02 08:24 | ED.SOB ---
HPI - SOB/Dyspnea General Chief Complaint: Shortness of Breath/Dyspnea Stated Complaint: JOINT PAIN, PNA LAST MONTH Time Seen by Provider: 01/02/22 07:51 Source: RN notes reviewed History of Present Illness HPI Narrative: Patient presents emergency department from home for diffuse pain. Patient states that he has been having pain throughout his entire body in his joints and all through his back he states the pain goes from his shoulders all the way down to his lower back he states the pain is worse with any movement states has had no trauma or injury states that he is able to walk but that at times his legs will feel heavy he states that he been having shortness of breath as well as chest pain he states he was diagnosed with pneumonia in early November was on a course of antibiotics and it did not improve and he is currently on doxycycline he states he did recently have a CT scan that showed a possible mass in his lung that is being further worked up denies any fevers or chills abdominal pain nausea or vomiting states that he has been taking [id number] pain medication at home with minimal relief Related Data Home Medications Medication Instructions Recorded Confirmed aspirin 81 mg tablet,delayed 81 mg PO DAILY 02/24/19 12/27/21 release (Adult Aspirin Regimen) potassium 99 mg tablet 99 mg PO DAILY 04/20/21 12/27/21 Allergies Allergy/AdvReac Type Severity Reaction Status Date / Time No Known Allergies Allergy Verified 01/02/22 08:20 Review of Systems Review of Systems: Gen.: Denies fevers or chills Eyes: Denies eye pain or visual change ENT: Denies congestion Respiratory: Reports shortness of breath and cough CV: Reports chest GI: Denies abdominal pain nausea, emesis or diarrhea Musculoskeletal: See HPI Neuro: Denies numbness, tingling, weakness or focal weakness Skin: Denies rash Except as documented, all other systems reviewed and negative [facility] Past Medical History Medical History Basal cell carcinoma, face Cataract Claudication in peripheral vascular disease Dermatofibroma Essential hypertension Femoral artery stenosis, right Hemoglobin A1C between 7% and 9% indicating borderline diabetic control 07/02/2020 A1c = 7.4 History of chicken pox History of colon polyps History of measles Hypertension Hypertriglyceridemia Melanocytic nevi of trunk Neurogenic claudication due to lumbar spinal stenosis Obesity Obstructive sleep apnea Presence of stent in artery (~10/26/20) right iliac Sacroiliac joint dysfunction of right side Type 2 diabetes mellitus with hyperglycemia Surgical History Surgical History (Updated 12/27/21 @ 13:45 by Ketan Cat MA) History of intravascular stent placement 10/2020, femoral artery 06/2021 Family History Family History Father Family history of cardiovascular disease Mother No problems noted. Other Diabetes mellitus Family history of Alzheimer's disease Hypertension Social History Social History Smoking status: Former smoker Tobacco type: cigarettes Smoking end date: 03/26/99 Alcohol intake: current Drinks per week: 7 Gender identity (if verbalized by the patient): Male Spiritual care concerns: No Exam Narrative: APPEARANCE: No acute distress, nontoxic, resting in bed EYES: EOMI, PERRL HEENT: Normocephalic, atraumatic, OMM RESPIRATORY: No respiratory distress Clear to auscultation bilaterally with no rhonchi wheezing or rales. CARDIOVASCULAR: Regular rate and rhythm without murmurs rubs or gallops. ABDOMINAL: Soft, nontender, nondistended, no rebound or guarding MUSCULOSKELETAl: Moves all extremities. No clubbing, cyanosis or edema. Back: Diffuse tenderness to palpation throughout the thoracic and lumbar spine pain with any movement NEUR
[2022-01-02 08:46] LABS: Basophils Percent Auto 0.2 % (0.2-1.2); Eosinophils Absolute Auto 0.2 K/mm3 (0-0.3); Eosinophils Percent Auto 1.2 % (0-4.4); Hemoglobin 16.6 g/dL (14.0-18.0); Immature Granulocyte Percent A 0.8 % (0-0.5); Lymphocytes Absolute Auto 1.45 K/mm3 (0.9-3.2); Lymphocytes Percent Auto 11.2 % (18.3-44.2); Mean Corpuscular HGB Conc 32.5 g/dl (32-36); Mean Corpuscular Hemoglobin 26.9 pg (26-34); Mean Corpuscular Volume 82.7 fl (80-100); Mean Platelet Volume 9.5 fl (7.4-10.4); Monocytes Absolute Auto 1.3 K/mm3 (0.1-0.6); Monocytes Percent Auto 10.1 % (2.6-8.5); Neutrophils Absolute Auto 9.9 K/mm3 (1.3-6.7); Neutrophils Percent Auto 76.5 % (45.5-73.1); Platelet Count Result 337 k/mm3 (150-375); Red Blood Count 6.17 M/mm3 (4.6-6.20); Red Cell Distribution Width 14.9 % (11.5-14.5); White Blood Count 12.9 K/mm3 (4.5-10.0)
[2022-01-02 08:55] LABS: Lactic Acid Reflex 1.4 mmol/L (0.7-2.0)
[2022-01-02 08:56] LABS: Alanine Aminotransferase 16 U/L (6-50); Albumin Level 4.7 g/dL (3.5-5.1); Alkaline Phosphatase 94 U/L (38-126); Anion Gap 17 mmol/L (8-16); Aspartate Amino Transferase 37 U/L (17-59); Bilirubin,Total 0.6 mg/dL (0.2-1.3); Blood Urea Nitrogen 26 mg/dL (9-20); Calcium 12.7 mg/dL (8.4-10.2); Carbon Dioxide 26 mmol/L (22-30); Chloride 97 mmol/L (98-107); Estimated CRCL calculation 66 ml/min; Estimated Glomerular Filt Rate > 60; Glucose 148 mg/dL (65-110); INR 1.2; Lipase 32 U/L (23-300); Potassium 3.9 mmol/L (3.4-5.0); Prothrombin Time 14.4 Seconds (11.1-14.7); Sodium 140 mmol/L (137-145)
[2022-01-02 08:57] LABS: Partial Thromboplastin Time 31.2 SECONDS (22.3-36.8)
[2022-01-02 09:00] LABS: D Dimer 3.23 ug/mL (<0.48)
[2022-01-02 09:07] LABS: Troponin I < 0.012 ng/mL (0.000-0.034)
[2022-01-02 09:15] LABS: Erythrocyte Sedimentation Rate 8 mm/hr (0-20)
[2022-01-02 09:23] LABS: CRP 17.8 mg/dL (<1.0)
[2022-01-02 10:39] LABS: Add Urine Microscopic? YES; Appearance Urine Clear (Clear); Bilirubin Urine Negative (Negative); Blood Urine 1+ (Negative); Color Urine Yellow (Yellow); Glucose Urine UA 3+ mg/dL (Negative); Ketones Urine Trace mg/dL (Negative); Leukocyte Esterase Ur Negative LEU/UL (Negative); Mucus Urine Rare /lpf; Nitrate Urine Negative (Negative); Protein Urine Negative (Negative); Specific Grav Ur 1.027 (1.001-1.035); Squamous Epithelial Cell Urine Rare /hpf (Few); Urobilinogen Urine Negative mg/dL (<2.0); WBC Urine 0-3 /hpf
[2022-01-02] MEDS: MORPHINE SULFATE (*CRX) 4 MG/ML INJ 2 MG IV PUSH (10:53)
[2022-01-02 12:22] LABS: SARS-CoV-2 RNA PCR Negative
[2022-01-02 13:06] LABS: Troponin I < 0.012 ng/mL (0.000-0.034)
[2022-01-02] MEDS: oxyCODONE HCL (*CRX) 5 MG TAB IR PO (14:50)
[2022-01-02 14:51] LABS: Troponin I < 0.012 ng/mL (0.000-0.034)
[2022-01-02] MEDS: MORPHINE SULFATE (*CRX) 2 MG/ML INJ IV PUSH ×2 (15:53→20:22)
--- NOTE | 2022-01-02 17:16 | ADMGEN ---
This patient, Orville Hong, was admitted to 3 [facility] Surg Room 319-01. Patient/family oriented to hospital policies and general routines including ID bracelet, bed and alarms, visiting hours, pain management, procedures, bathroom and other care routines, personal items, smoking policy, room service/diet, and visiting hours. Information on how to activate the Rapid Response Team has been discussed. Patient/Family are encouraged to report perceived risks to care and to ask questions if they do not understand what they are told or what they should do.
--- NOTE | 2022-01-02 18:00 | PM.IMHP ---
H&P: HPI History of Present Illness Date/Time: 01/02/22 18:00 Chief Complaint: Pain. Narrative: This is a very pleasant 71-year-old male with insulin-dependent diabetes, hypertension, hyperlipidemia, coronary artery disease, and sleep apnea who presented to the emergency department from home for evaluation of pain all over. About a month ago he was prescribed amoxicillin for a presumed sinus infection (he complained of sinus congestion, sinus drainage, cough, and hoarseness). Unfortunately his symptoms did not really improve and about a week thereafter he started having severe pain in his spine from the neck to the tail bone which he attributed to the fact that he had been coughing significantly. He went back to his doctor's office due to continued symptoms and he was prescribed doxycycline and an inhaler which did seem to help his cough. X-ray taken at that time showed nodular densities in the left upper lobe and left upper lobe pneumonia. A subsequent chest CT taken on 12/29/2021 showed findings concerning for a left lung mass and nonspecific mediastinal and bilateral hilar lymphadenopathy. He was referred to pulmonology but has yet to have an appointment. Due to constant, ongoing pain which has left him unable to sleep much at all, he decided to come in today for evaluation. A CTA of the chest, abdomen, and pelvis showed a left hilar mass consistent with primary bronchogenic carcinoma, postobstructive pneumonia, mediastinal and left supraclavicular lymphadenopathy, and widespread lytic lesions with multiple pathologic fractures of the spine. He is being admitted in this setting for IV antibiotics, pain control, and for lymph node biopsy tomorrow. He has been started on immediate release oxycodone which seems to be taking the edge off but but it does not seem to be strong enough. He endorses a 25 pound weight loss in the last 3 weeks or so. He has been having sweats but no fever or chills. His cough is not productive, the inhaler seems to have helped with his cough quite a bit. He has not had chest or pleuritic pain and he denies palpitations and sensations of racing heart. No nausea, vomiting, or diarrhea. No focal weakness or paresthesias. Review of Systems Review of Systems: Twelve systems were reviewed and are negative except for as per HPI. [facility] Past Medical History Medical History (Updated 01/02/22 @ 22:04 by Brittany Gramajo PA-C) Basal cell carcinoma, face Essential hypertension Hypertension Hypertriglyceridemia Neurogenic claudication due to lumbar spinal stenosis Obstructive sleep apnea Obstructive sleep apnea on CPAP Peripheral vascular disease Type 2 diabetes mellitus Surgical History Surgical History (Updated 01/02/22 @ 21:59 by Brittany Gramajo PA-C) History of colonoscopy with polypectomy History of hernia repair History of intravascular stent placement Bilateral iliac stents. Family History Family History Father Family history of cardiovascular disease Mother No problems noted. Other Diabetes mellitus Family history of Alzheimer's disease Hypertension Social History Social History (Updated 01/02/22 @ 22:00 by Brittany Gramajo PA-C) Social History: Surrogate medical decision maker: Evelin Hong, . Code status: Full code. Smoking packs per day: 2 Smoking cigarettes per day: 40.0 Years smoked: 30 Smoking pack-years: 60.00 Smoking status: Former smoker Tobacco type: cigarettes Smoking end date: 03/26/99 Alcohol intake: current Drinks per week: 7 Substance use: never Additional living arrangements comments: The patient lives with his in [place]. They have 2 daughters. 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 Spiritual care concerns: No Meds Home Medications and Allergies Home Medications Medication Instructions Recorded
--- NOTE | 2022-01-02 18:44 | PC.NURSE ---
Called Mireya about family members wanting to speak with her since 13:30. Told this nurse that she has been slammed with admissions and will try and get up to the floor within an hour. Pt is NPO in prep for lung biopsy. Called Mireya a second time to see if pt can have a diet put in for the evening.
[2022-01-02] MEDS: traZODone HCL 50 MG TABLET 200 MG PO (22:54)
[2022-01-02] MEDS: oxyCODONE HCL (*CRX) 5 MG TAB IR 10 MG PO (22:55)
[2022-01-02] MEDS: METOPROLOL SUCCINATE EXT REL 50 MG TABCR PO (22:56)
[2022-01-02] MEDS: ROSUVASTATIN 10 MG TABLET 40 MG PO (22:56)
[2022-01-02] MEDS: SODIUM CHLORIDE 0.9% IV 1,000 ML 100 ML IV CONT (22:57)
[2022-01-03] MEDS: MORPHINE SULFATE (*CRX) 2 MG/ML INJ IV PUSH ×4 (00:36→17:51)
[2022-01-03 06:00] VITALS: BP 132/66; PULSE 114; RESP 14; TEMP 36.7; O2SAT 90
[2022-01-03 06:35] LABS: Basophils Absolute Auto 0.1 K/mm3 (0.0-0.1); Basophils Percent Auto 0.4 % (0.2-1.2); Eosinophils Absolute Auto 0.3 K/mm3 (0-0.3); Eosinophils Percent Auto 2.2 % (0-4.4); Hematocrit 44.9 % (42.0-52.0); Hemoglobin 14.8 g/dL (14.0-18.0); Immature Granulocyte Absolute 0.09 K/mm3 (0.00-0.031); Immature Granulocyte Percent A 0.7 % (0-0.5); Lymphocytes Absolute Auto 1.43 K/mm3 (0.9-3.2); Lymphocytes Percent Auto 11.6 % (18.3-44.2); Mean Corpuscular Hemoglobin 26.6 pg (26-34); Mean Corpuscular Volume 80.8 fl (80-100); Mean Platelet Volume 9.4 fl (7.4-10.4); Monocytes Absolute Auto 1.4 K/mm3 (0.1-0.6); Monocytes Percent Auto 11.5 % (2.6-8.5); Neutrophils Absolute Auto 9.1 K/mm3 (1.3-6.7); Neutrophils Percent Auto 73.6 % (45.5-73.1); Platelet Count Result 299 k/mm3 (150-375); Red Blood Count 5.56 M/mm3 (4.6-6.20); Red Cell Distribution Width 14.5 % (11.5-14.5); White Blood Count 12.4 K/mm3 (4.5-10.0)
[2022-01-03 06:52] LABS: Alanine Aminotransferase 15 U/L (6-50); Alkaline Phosphatase 74 U/L (38-126); Anion Gap 15 mmol/L (8-16); Aspartate Amino Transferase 33 U/L (17-59); Bilirubin,Total 0.5 mg/dL (0.2-1.3); Blood Urea Nitrogen 23 mg/dL (9-20); Calcium 11.5 mg/dL (8.4-10.2); Carbon Dioxide 28 mmol/L (22-30); Chloride 99 mmol/L (98-107); Estimated CRCL calculation 73 ml/min; Estimated Glomerular Filt Rate > 60; Glucose 100 mg/dL (65-110); Magnesium 2.3 mg/dL (1.6-2.3); Phosphorus 4.1 mg/dL (2.5-4.5); Potassium 3.6 mmol/L (3.4-5.0); Sodium 142 mmol/L (137-145)
[2022-01-03 07:02] LABS: Parathyroid Intact 6.6 pg/mL (7.5-53.5)
[2022-01-03] MEDS: oxyCODONE HCL (*CRX) 5 MG TAB IR 10 MG PO ×3 (07:03→20:40)
[2022-01-03 07:13] LABS: Hemoglobin A1C 7.6 % (<5.7)
[2022-01-03 07:45] LABS: Glucose Point of Care 106 mg/dl (65-105)
[2022-01-03] MEDS: FLUTICASONE/SALMETEROL 115-21 MCG INHALER 1 PUFF 2 PUFF INHALATION ×2 (08:06→20:30)
[2022-01-03] MEDS: FLUTICASONE PROPIONATE 0.05% NA SPR 16 GM BTL (*BKC) 2 SPRAY NASAL (08:14)
[2022-01-03] MEDS: FENOFIBRATE NANOCRYSTALLIZED 145 MG TABLET PO (08:15)
[2022-01-03] MEDS: lisinopriL 20 MG TABLET 40 MG PO (08:15)
--- NOTE | 2022-01-03 10:31 | PM.IMPN ---
Progress Note: A&P Assessment and Plan (1) Mass of left lung: Code(s): R91.8 - Other nonspecific abnormal finding of lung field Status: Acute Assessment and Plan: with likely metastatic disease. Plan to biopsy lymph node today (2) Lytic bone lesions on xray: Code(s): M89.9 - Disorder of bone, unspecified Status: Acute Assessment and Plan: metastatic disease with fracture. Dr. Little has been consulted (3) Hypercalcemia: Code(s): E83.52 - Hypercalcemia Status: Acute Assessment and Plan: asymptomatic currently. Monitor (4) Postobstructive pneumonia: Code(s): J18.9 - Pneumonia, unspecified organism Status: Acute Assessment and Plan: IV antibiotics, respiratory status is okay. (5) Pathologic lumbar vertebral fracture: Code(s): M84.48XA - Pathological fracture, other site, initial encounter for fracture Status: Acute Assessment and Plan: neurosurgical consult (6) Mediastinal lymphadenopathy: Code(s): R59.0 - Localized enlarged lymph nodes Status: Acute Assessment and Plan: secondary to above (7) Essential hypertension: Code(s): I10 - Essential (primary) hypertension Status: Acute Assessment and Plan: monitor (8) Type 2 diabetes mellitus: Code(s): E11.9 - Type 2 diabetes mellitus without complications Status: Acute Assessment and Plan: monitor blood sugar (9) Obstructive sleep apnea on CPAP: Code(s): G47.33 - Obstructive sleep apnea (adult) (pediatric); Z99.89 - Dependence on other enabling machines and devices Status: Acute Subjective Date/time seen: 01/03/22 10:31 no new complaints Exam Narrative: General: Well-developed, nontoxic-appearing male sitting up in bed. Weight: 98.9 kilograms. BMI: 31.3. HEENT: PERRL, EOMI. Sclera anicteric. Tacky mucous membranes. Voice is hoarse. Neck: Supple. No cervical lymphadenopathy. Respiratory: Respirations are nonlabored and he is speaking in full sentences. Coarse lung sounds in the left mid and upper lung banks. Cardiovascular: Tachycardic with S1-S2. Gastrointestinal: Abdomen is soft, nontender, and nondistended with positive bowel sounds. Skin: Warm and dry. No rash or lesions on limited exam. Extremities: No cyanosis, clubbing, or edema. Radial and pedal pulses intact. Spine: He has scattered areas of tenderness to palpation over the lower cervical and mid to upper thoracic spine. Neurological: Alert. Cranial nerves 2-12 are grossly intact. No gross focal deficits to casual conversation. Psychiatric: Pleasant and cooperative with normal mood and affect. Judgment and insight intact. Objective Data Vital Signs Vital Signs: Vital Signs - 24 hr 01/02/22 11:25 01/02/22 17:32 01/02/22 14:00 Temperature 97.4 F L Pulse Rate 116 H 115 H Respiratory Rate 22 H 24 H Blood Pressure 155/91 H 157/87 H Pulse Oximetry 91 92 92 Oxygen Delivery Room Air 01/02/22 22:00 01/02/22 22:56 01/03/22 06:00 Temperature 99.2 F 98.0 F Pulse Rate 125 H 78 114 H Respiratory Rate 14 14 Blood Pressure 167/90 H 132/66 Pulse Oximetry 90 90 Oxygen Delivery Intake/Output Intake/Output: Intake & Output 12/31/21 01/01/22 01/02/22 01/03/22 23:59 23:59 23:59 23:59 Intake Total 1350 50 Balance 1350 50 Meds/Results Medications: Active Medications Generic Name Dose Route Start Last Admin Trade Name Freq PRN Reason Stop Dose Admin Acetaminophen 650 mg 01/02/22 14:23 Acetaminophen 325 Mg Tablet PO Q6H PRN Mild Pain (1-3) or Fever Cyclobenzaprine HCl 5 mg 01/02/22 22:15 Cyclobenzaprine Hcl 5 Mg Tablet PO TID PRN muscle spasm Dextrose 12.5 gm 01/02/22 22:07 Dextrose 50% 25 Gm/50 Ml Syringe IV PUSH PRN PRN Hypoglycemia Protocol Empagliflozin 25 mg 01/03/22 09:00 01/03/22 08:13 Empagliflozin 25 Mg Tablet PO
[2022-01-03 11:14] VITALS: BMI 31.2
[2022-01-03 11:24] LABS: Glucose Point of Care 104 mg/dl (65-105)
[2022-01-03] MEDS: SODIUM CHLORIDE 0.9% IV 1,000 ML 75 ML IV CONT (11:50)
--- NOTE | 2022-01-03 13:30 | PCNSR ---
On 01/03/22, the student,Maik Baldwin, provided care and completed [facility] on [facility]. I have reviewed the student's documentation and agree with the findings.
[2022-01-03 14:00] VITALS: BP 131/92; PULSE 110; RESP 22; TEMP 36.3; O2SAT 91
--- NOTE | 2022-01-03 14:46 | WPDNEUROSGCN ---
Assessment and Plan Assessment and plan (1) Metastatic cancer to spine: Code(s): C79.51 - Secondary malignant neoplasm of bone Status: Acute (2) Pathologic thoracic fracture: Code(s): M84.48XA - Pathological fracture, other site, initial encounter for fracture Status: Acute Plan Mr. Hong is a 71-year-old male who was recently discovered to have diffuse metastatic cancer throughout the spine with suspected origin from the lung. He had a lymph node biopsy today with pathology results pending. He has diffuse pain but no neurologic deficit on exam. CT neuraxis shows diffuse bony metastases including the skull base and entire spinal column. I do not see anything obvious on those imaging or from his neurologic exam to make me think he has any significant tumor extension into the spinal canal. I reviewed the images with the patient and his family. At this time, there is not a neurosurgical role for his widespread disease. While he does have a couple upper thoracic pathologic fractures, this is a difficult area to brace, and I am not sure that would even be helpful for him. However, I would like to obtain standing thoracic xrays to ensure there are no signs of instability. I also recommend MRI brain without/with contrast to evaluate for brain metastases. Plan: -Recommend upright thoracic xrays to ensure no signs of spinal instability -Recommend MRI brain without/with contrast to evaluate for brain metastases Review of Systems Review of Systems: 14-point ROS was conducted and was negative aside from above PMFSH Past Medical History Medical History (Updated 01/03/22 @ 14:58 by Kait Anna MD) Basal cell carcinoma, face Essential hypertension Hypertension Hypertriglyceridemia Neurogenic claudication due to lumbar spinal stenosis Obstructive sleep apnea Obstructive sleep apnea on CPAP Peripheral vascular disease Type 2 diabetes mellitus Surgical History Surgical History (Updated 01/02/22 @ 21:59 by Brittany Gramajo PA-C) History of colonoscopy with polypectomy History of hernia repair History of intravascular stent placement Bilateral iliac stents. Family History Family History Father Family history of cardiovascular disease Mother No problems noted. Other Diabetes mellitus Family history of Alzheimer's disease Hypertension Social History Social History (Updated 01/02/22 @ 22:00 by Brittany Gramajo PA-C) Social History: Surrogate medical decision maker: Evelin Hong, . Code status: Full code. Smoking packs per day: 2 Smoking cigarettes per day: 40.0 Years smoked: 30 Smoking pack-years: 60.00 Smoking status: Former smoker Tobacco type: cigarettes Smoking end date: 03/26/99 Alcohol intake: current Drinks per week: 7 Substance use: never Additional living arrangements comments: The patient lives with his in [place]. They have 2 daughters. 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 Spiritual care concerns: No Meds Home Medications and Allergies Home Medications Medication Instructions Recorded Confirmed Type aspirin 81 mg tablet,delayed 81 mg PO DAILY 02/24/19 01/02/22 History release (Adult Aspirin Regimen) pen needle, diabetic 31 gauge x #400 ea 01/01/20 12/27/21 Rx 3/16 (BD Ultra-Fine Mini Pen Needle) fluticasone propionate 50 2 spray intranasal DAILY #9.9 mL 09/24/20 01/02/22 Rx mcg/actuation nasal spray,suspension (Flonase Allergy Relief) blood sugar diagnostic (OneTouch #400 ea 12/27/20 12/27/21 Rx Verio test strips) triamterene 37.5 1 cap PO DAILY #90 caps 03/28/21 01/02/22 Rx mg-hydrochlorothiazide 25 mg capsule potassium 99 mg tablet 99 mg PO DAILY 04/20/21 01/02/22 History insulin glargine U-300 conc 300 100 unit (0.3333 mL) subcut DAILY 05/26/21 01/02/22 Rx unit
[2022-01-03 16:32] LABS: Glucose Point of Care 161 mg/dl (65-105)
[2022-01-03 20:31] VITALS: PULSE 110
[2022-01-03] MEDS: METOPROLOL SUCCINATE EXT REL 50 MG TABCR PO (20:31)
[2022-01-03] MEDS: ROSUVASTATIN 10 MG TABLET 40 MG PO (20:31)
[2022-01-03] MEDS: traZODone HCL 50 MG TABLET 200 MG PO (20:31)
[2022-01-03 20:33] VITALS: O2SAT 92
[2022-01-03 21:51] LABS: Glucose Point of Care 153 mg/dl (65-105)
[2022-01-03 22:00] VITALS: BP 146/74; PULSE 118; RESP 20; TEMP 36.6; O2SAT 92
[2022-01-03] MEDS: METHYLNALTREXONE 12 MG/0.6 ML VIAL SUB-Q (22:22)
[2022-01-04] VITALS (7 sets, daily range): BP systolic 149–174; BP diastolic 74–89; PULSE 100–112; RESP 16–20; TEMP 36.1–36.4; O2SAT 91–96
[2022-01-04] MEDS: MORPHINE SULFATE (*CRX) 2 MG/ML INJ IV PUSH ×4 (00:50→22:34)
[2022-01-04] MEDS: oxyCODONE HCL (*CRX) 5 MG TAB IR 10 MG PO ×4 (03:23→23:16)
[2022-01-04] MEDS: SODIUM CHLORIDE 0.9% IV 1,000 ML 75 ML IV CONT (03:27)
[2022-01-04 06:45] LABS: Alanine Aminotransferase 15 U/L (6-50); Albumin Level 3.7 g/dL (3.5-5.1); Alkaline Phosphatase 76 U/L (38-126); Anion Gap 8 mmol/L (8-16); Aspartate Amino Transferase 28 U/L (17-59); Bilirubin,Total 0.5 mg/dL (0.2-1.3); Blood Urea Nitrogen 21 mg/dL (9-20); Carbon Dioxide 27 mmol/L (22-30); Chloride 101 mmol/L (98-107); Estimated CRCL calculation 80 ml/min; Estimated Glomerular Filt Rate > 60; Glucose 145 mg/dL (65-110); Potassium 3.7 mmol/L (3.4-5.0); Sodium 136 mmol/L (137-145)
[2022-01-04 08:29] LABS: Glucose Point of Care 138 mg/dl (65-105)
[2022-01-04] MEDS: INSULIN GLARGINE (*BKC) 100 UNITS/ML SUB-Q (08:51)
[2022-01-04] MEDS: FENOFIBRATE NANOCRYSTALLIZED 145 MG TABLET PO (08:54)
[2022-01-04] MEDS: EMPAGLIFLOZIN 25 MG TABLET PO (08:54)
[2022-01-04] MEDS: lisinopriL 20 MG TABLET 40 MG PO (08:54)
[2022-01-04] MEDS: FLUTICASONE PROPIONATE 0.05% NA SPR 16 GM BTL (*BKC) 2 SPRAY NASAL (08:55)
[2022-01-04] MEDS: FLUTICASONE/SALMETEROL 115-21 MCG INHALER 1 PUFF 2 PUFF INHALATION ×2 (09:16→19:52)
[2022-01-04 11:53] LABS: Glucose Point of Care 195 mg/dl (65-105)
[2022-01-04] MEDS: ENOXAPARIN 40 MG/0.4 ML SYRINGE SUB-Q (13:08)
[2022-01-04 16:31] LABS: Glucose Point of Care 181 mg/dl (65-105)
--- NOTE | 2022-01-04 17:30 | PM.IMPN ---
Progress Note: A&P Assessment and Plan (1) Mass of left lung: Code(s): R91.8 - Other nonspecific abnormal finding of lung field Status: Acute Assessment and Plan: CT of the chest showing no pulmonary emboli but does show airspace opacity in left upper lobe consistent with pneumonia. This concerns may be postobstructive pneumonia. He has a left hilar mass consistent with primary bronchogenic carcinoma. Diffuse adenopathy noted as well. Lymph node biopsy performed on 01/03/2022. Results Should be back by tomorrow. Concerning for lung cancer primary with metastatic bone lesions. (2) Postobstructive pneumonia: Code(s): J18.9 - Pneumonia, unspecified organism Status: Acute Assessment and Plan: Patient with mild tachypnea. He is also wheezing but this may be related to pulmonary edema given that he has been on IV fluids (I/O not accurate). he remains on room air. Will check chest x-ray. Will stop IV fluids. Consider steroids. (3) Lytic bone lesions on xray: Code(s): M89.9 - Disorder of bone, unspecified Status: Acute Assessment and Plan: Patient with but appears to be metastatic lung cancer to the bone that has resulted in pathologic fractures of T3, left T9 transverse process and left 1st rib. Patient has significant bone pain. This is most likely etiology of his hypercalcemia. The pain also causing the tachycardia. No PE by CTA. Check doppler. Dr. Little has been consulted and appreciate his input. Will add a heating pad and Lidoderm patches. Will schedule IV Tylenol try to improve his pain control. (4) Hypercalcemia: Code(s): E83.52 - Hypercalcemia Status: Acute Assessment and Plan: Calcium elevated on admission has remained elevated despite IV fluids. Stop IV fluids. Will need bisphosphonate to improve his hypercalcemia. (5) Essential hypertension: Code(s): I10 - Essential (primary) hypertension Status: Acute Assessment and Plan: Patient's blood pressure was reviewed on 01/04 Blood pressure remains reasonably well controlled. Will continue current medications. (6) Type 2 diabetes mellitus: Code(s): E11.9 - Type 2 diabetes mellitus without complications Status: Acute Assessment and Plan: A1c 7.6 The patient's blood glucose was reviewed on 01/04 Glucose remains reasonably well controlled. Continue AccuCheks covering with sliding scale. Hypoglycemia protocol available as needed. Continue current medications. (7) Obstructive sleep apnea on CPAP: Code(s): G47.33 - Obstructive sleep apnea (adult) (pediatric); Z99.89 - Dependence on other enabling machines and devices Status: Acute Assessment and Plan: CPAP ordered but not using. Check ABG in AM to exclude CO2 retention. (8) Pathologic lumbar vertebral fracture: Code(s): M84.48XA - Pathological fracture, other site, initial encounter for fracture Status: Acute Assessment and Plan: As above (9) Mediastinal lymphadenopathy: Code(s): R59.0 - Localized enlarged lymph nodes Status: Acute Assessment and Plan: as above. Plan DVT prophylaxis: Lovenox code status: Full diet: Diabetic Subjective Date/time seen: 01/04/22 17:30 Interval history: 71yo male with DM, HTN and CAD here for back/neck/shoulder pain for about 1 month. was found to have a left lung mass lytic bone lesions concerning for metastatic cancer. Assuming care. Chart reviewed. Patient states the pain medications last for about 2 hours before they wear off. Family in the room is concerned that the patient actually is overmedicated because he seems to be sleeping the whole time. Patient has not had a bowel movement the past 7 days. He is passing flatus. No abdominal pain. No chest pain. Pain is in his chest is worse with coughing. Pain is also mostly up in the shoulder girdle,
[2022-01-04] MEDS: polyethylene glycoL 3350 17 GM POWD.PACK PO (21:12)
[2022-01-04] MEDS: LIDOCAINE 5% PATCH 1 PATCH TRANSDERM (21:13)
[2022-01-04] MEDS: traZODone HCL 50 MG TABLET 200 MG PO (21:14)
[2022-01-04] MEDS: ROSUVASTATIN 10 MG TABLET 40 MG PO (21:15)
[2022-01-04] MEDS: METOPROLOL SUCCINATE EXT REL 50 MG TABCR PO (21:16)
[2022-01-05] VITALS (7 sets, daily range): BP systolic 138–161; BP diastolic 76–92; PULSE 97–110; RESP 16–20; TEMP 36.3–36.6; O2SAT 93–97
[2022-01-05 05:41] LABS: Alveolar/Arterial O2 Gradient 84.9 mmHg; Base Excess ABG 3.1 mEq/l (+/-2.0); Fractional Inspired Oxygen 28 %; HCO3 ABG 28.3 mEq/l (22.0-26.0); Oxygen Content ABG 18.6 %vol (16.0-22.0); Oxygen Saturation ABG 91.7 % (95.0-100.0); Oxyhemoglobin 89.5 % THb (90.0-100.0); PCO2 ABG 45.2 mmHg (35.0-45.0); PO2 ABG 61.4 mmHg (80.0-100.0); PO2 FiO2 Ratio Arterial Blood 2.19 %; Total Hemoglobin 14.8 g/dL (12.0-18.0); pH ABG 7.414 (7.350-7.450)
[2022-01-05] MEDS: oxyCODONE HCL (*CRX) 5 MG TAB IR 10 MG PO ×3 (05:41→16:28)
[2022-01-05 05:48] LABS: Modified Allen's Test Pass; Site Drawn LEFT RADIAL
[2022-01-05 07:47] LABS: Basophils Percent Auto 0.3 % (0.2-1.2); Eosinophils Absolute Auto 0.3 K/mm3 (0-0.3); Hematocrit 42.7 % (42.0-52.0); Hemoglobin 13.8 g/dL (14.0-18.0); Immature Granulocyte Absolute 0.07 K/mm3 (0.00-0.031); Immature Granulocyte Percent A 0.7 % (0-0.5); Lymphocytes Absolute Auto 1.09 K/mm3 (0.9-3.2); Lymphocytes Percent Auto 11.4 % (18.3-44.2); Mean Corpuscular HGB Conc 32.3 g/dl (32-36); Mean Corpuscular Hemoglobin 26.5 pg (26-34); Mean Platelet Volume 9.1 fl (7.4-10.4); Monocytes Absolute Auto 1.1 K/mm3 (0.1-0.6); Monocytes Percent Auto 11.4 % (2.6-8.5); Neutrophils Percent Auto 73.2 % (45.5-73.1); Platelet Count Result 251 k/mm3 (150-375); Red Blood Count 5.21 M/mm3 (4.6-6.20); Red Cell Distribution Width 14.4 % (11.5-14.5); White Blood Count 9.6 K/mm3 (4.5-10.0)
[2022-01-05 07:55] LABS: Alanine Aminotransferase 17 U/L (6-50); Albumin Level 3.6 g/dL (3.5-5.1); Alkaline Phosphatase 79 U/L (38-126); Anion Gap 9 mmol/L (8-16); Aspartate Amino Transferase 33 U/L (17-59); Bilirubin,Total 0.5 mg/dL (0.2-1.3); Blood Urea Nitrogen 22 mg/dL (9-20); Calcium 11.6 mg/dL (8.4-10.2); Carbon Dioxide 30 mmol/L (22-30); Chloride 101 mmol/L (98-107); Estimated CRCL calculation 66 ml/min; Estimated Glomerular Filt Rate > 60; Glucose 96 mg/dL (65-110); Magnesium 2.5 mg/dL (1.6-2.3); Phosphorus 4.9 mg/dL (2.5-4.5); Potassium 3.3 mmol/L (3.4-5.0); Sodium 140 mmol/L (137-145)
[2022-01-05] MEDS: FLUTICASONE/SALMETEROL 115-21 MCG INHALER 1 PUFF 2 PUFF INHALATION ×2 (08:05→20:31)
[2022-01-05] MEDS: lisinopriL 20 MG TABLET 40 MG PO (08:33)
[2022-01-05] MEDS: EMPAGLIFLOZIN 25 MG TABLET PO (08:33)
[2022-01-05] MEDS: FENOFIBRATE NANOCRYSTALLIZED 145 MG TABLET PO (08:33)
[2022-01-05] MEDS: ENOXAPARIN 40 MG/0.4 ML SYRINGE SUB-Q (08:33)
[2022-01-05] MEDS: polyethylene glycoL 3350 17 GM POWD.PACK PO ×2 (08:34→16:28)
[2022-01-05] MEDS: FLUTICASONE PROPIONATE 0.05% NA SPR 16 GM BTL (*BKC) 2 SPRAY NASAL (08:34)
[2022-01-05 08:37] LABS: Glucose Point of Care 91 mg/dl (65-105)
[2022-01-05] MEDS: INSULIN GLARGINE (*BKC) 100 UNITS/ML SUB-Q (09:22)
[2022-01-05 11:51] LABS: Glucose Point of Care 153 mg/dl (65-105)
[2022-01-05] MEDS: MORPHINE SULFATE (*CRX) 2 MG/ML INJ IV PUSH ×2 (14:51→21:53)
[2022-01-05 17:03] LABS: Glucose Point of Care 126 mg/dl (65-105)
--- NOTE | 2022-01-05 17:22 | PM.IMPN ---
Progress Note: A&P Assessment and Plan (1) Mass of left lung: Code(s): R91.8 - Other nonspecific abnormal finding of lung field Status: Acute Assessment and Plan: CT of the chest showing no pulmonary emboli but does show airspace opacity in left upper lobe consistent with pneumonia. This concerns may be postobstructive pneumonia. He has a left hilar mass consistent with primary bronchogenic carcinoma. Diffuse adenopathy noted as well. Lymph node biopsy performed on 01/03/2022. Concerning for lung cancer primary with metastatic bone lesions. Biopsy pending. (2) Postobstructive pneumonia: Code(s): J18.9 - Pneumonia, unspecified organism Status: Acute Assessment and Plan: Patient had mild tachypnea. He was also wheezing but this is improved. CXR does not show fluid overload. He is requiring 2L currently. BCx remain negative. WBC normal now. Wean O2 as tolerated. Encouraged patient to be out of bed as toerlated. Continue IV abx. 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 Patient has significant bone pain. This is most likely etiology of his hypercalcemia. The pain causing the tachycardia. No PE by CTA; no DVT by doppler. Dr. Little was consulted and appreciate his input. Pain better and HR improved. Continue heating pad and Lidoderm patches. Continue schedule IV Tylenol. Increase activity as tolerated. Continue PT/OT (4) Hypercalcemia: Code(s): E83.52 - Hypercalcemia Status: Acute Assessment and Plan: Calcium elevated on admission and has remained elevated despite IV fluids. Will need bisphosphonate to improve his hypercalcemia. Check VitD level to exclude deficiency. (5) Essential hypertension: Code(s): I10 - Essential (primary) hypertension Status: Acute Assessment and Plan: Patient's blood pressure was reviewed on 01/05 Blood pressure remains elevated at times. Will continue his current medications and continue to try to improve his pain. (6) Type 2 diabetes mellitus: Code(s): E11.9 - Type 2 diabetes mellitus without complications Status: Acute Assessment and Plan: A1c 7.6 The patient's blood glucose was reviewed on 01/05 Glucose remains well controlled. Continue AccuCheks covering with sliding scale. Hypoglycemia protocol available as needed. Continue current medications. (7) Obstructive sleep apnea on CPAP: Code(s): G47.33 - Obstructive sleep apnea (adult) (pediatric); Z99.89 - Dependence on other enabling machines and devices Status: Acute Assessment and Plan: ABG this morning showing 7.41/45/61 on 2L. CPAP ordered but not using. Encourage compliance. (8) Pathologic lumbar vertebral fracture: Code(s): M84.48XA - Pathological fracture, other site, initial encounter for fracture Status: Acute Assessment and Plan: As above (9) Mediastinal lymphadenopathy: Code(s): R59.0 - Localized enlarged lymph nodes Status: Acute Assessment and Plan: as above. Plan DVT prophylaxis: Lovenox Code status: Full Diet: Diabetic Subjective Date/time seen: 01/05/22 17:22 Interval history: 71yo male with DM, HTN and CAD here for back/neck/shoulder pain for about 1 month. was found to have a left lung mass lytic bone lesions concerning for metastatic cancer. Pain is better controlled. Family feels he is not as sleepy. He has been up walking to the BR. No BM but with flatus. Exam Narrative: AF 97.8 158/86 98 16 94% 2L Gen - NARD Chest -bibasilar L>R inspiratory crackles, nml RR CV - RRR S1/S2 Abd - Soft, NT/ND, +BS Ext - No pedal edema Psych - nml mood, appears more comfortable Ski
[2022-01-05 20:25] LABS: Vitamin D 25 Hydroxy 41.4 ng/mL
[2022-01-05] MEDS: LIDOCAINE 5% PATCH 1 PATCH TRANSDERM (20:40)
[2022-01-05] MEDS: traZODone HCL 50 MG TABLET 200 MG PO (20:41)
[2022-01-05] MEDS: ROSUVASTATIN 10 MG TABLET 40 MG PO (20:41)
[2022-01-05] MEDS: METOPROLOL SUCCINATE EXT REL 50 MG TABCR PO (20:41)
[2022-01-06] VITALS (8 sets, daily range): BP systolic 160–188; BP diastolic 86–93; PULSE 98–141; RESP 16–20; TEMP 36.1–36.8; O2SAT 90–94
[2022-01-06] MEDS: oxyCODONE HCL (*CRX) 5 MG TAB IR 10 MG PO ×4 (02:28→22:07)
[2022-01-06] MEDS: MORPHINE SULFATE (*CRX) 2 MG/ML INJ IV PUSH ×3 (04:05→15:30)
[2022-01-06 06:54] LABS: Anion Gap 10 mmol/L (8-16); Blood Urea Nitrogen 22 mg/dL (9-20); Calcium 12.3 mg/dL (8.4-10.2); Carbon Dioxide 32 mmol/L (22-30); Chloride 99 mmol/L (98-107); Estimated CRCL calculation 73 ml/min; Estimated Glomerular Filt Rate > 60; Glucose 113 mg/dL (65-110); Potassium 3.1 mmol/L (3.4-5.0); Sodium 141 mmol/L (137-145)
[2022-01-06 08:05] LABS: Glucose Point of Care 105 mg/dl (65-105)
[2022-01-06] MEDS: ZOLEDRONIC ACID 4 MG/100 ML 100 ML 400 MG IVPB (08:13)
[2022-01-06] MEDS: CYCLOBENZAPRINE HCL 5 MG TABLET PO (08:13)
[2022-01-06] MEDS: FENOFIBRATE NANOCRYSTALLIZED 145 MG TABLET PO (08:14)
[2022-01-06] MEDS: lisinopriL 20 MG TABLET 40 MG PO (08:14)
[2022-01-06] MEDS: POTASSIUM CHLORIDE 20 MEQ TABLET 40 MEQ PO (08:14)
[2022-01-06] MEDS: ENOXAPARIN 40 MG/0.4 ML SYRINGE SUB-Q (08:14)
[2022-01-06] MEDS: polyethylene glycoL 3350 17 GM POWD.PACK PO ×2 (08:15→17:33)
[2022-01-06] MEDS: EMPAGLIFLOZIN 25 MG TABLET PO (08:15)
[2022-01-06] MEDS: FLUTICASONE PROPIONATE 0.05% NA SPR 16 GM BTL (*BKC) 2 SPRAY NASAL ×2 (08:15→21:04)
[2022-01-06] MEDS: FLUTICASONE/SALMETEROL 115-21 MCG INHALER 1 PUFF 2 PUFF INHALATION (09:18)
--- NOTE | 2022-01-06 11:05 | PM.IMPN ---
Progress Note: A&P Assessment and Plan (1) Mass of left lung: Code(s): R91.8 - Other nonspecific abnormal finding of lung field Status: Acute Assessment and Plan: CT of the chest showing no pulmonary emboli but does show airspace opacity in left upper lobe consistent with pneumonia. This is concerning for postobstructive pneumonia. He has a left hilar mass consistent with primary bronchogenic carcinoma. Diffuse adenopathy noted as well. Lymph node biopsy performed on 01/03/2022. Concerning for lung cancer primary with metastatic bone lesions. Path still pending. (2) Postobstructive pneumonia: Code(s): J18.9 - Pneumonia, unspecified organism Status: Acute Assessment and Plan: Patient again with wheezing. CXR 01/05 showing stable opacities in the left mid and upper lung. He remains on 2L currently. BCx remain negative. WBC normal now. No fevers. Wean O2 as tolerated. Encouraged patient to be out of bed as tolerated. Continue IV abx. Encouraged IS use. 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 Patient has significant bone pain. This is most likely etiology of his hypercalcemia. The pain is causing the tachycardia and elevated BP. No PE by CTA; no DVT by doppler. Neurosurgery was consulted and appreciate his input. Pain worse today but no neuro changes. Continue heating pad and Lidoderm patches. Resume scheduled IV Tylenol. Increase activity as tolerated. Continue PT/OT. Add MS Abbey. Has bilateral iliac stents in place but radiology felt okay for MRI. Will proceed with neuro MRI. (4) Hypercalcemia: Code(s): E83.52 - Hypercalcemia Status: Acute Assessment and Plan: Calcium elevated on admission and has remained elevated despite IV fluids. Vit D level normal. Zoledronic acid once. (5) Essential hypertension: Code(s): I10 - Essential (primary) hypertension Status: Acute Assessment and Plan: Patient's blood pressure was reviewed on 01/06 Blood pressure elevated again felt related to increasing pain Will continue his current medications and continue to try to improve his pain. (6) Type 2 diabetes mellitus: Code(s): E11.9 - Type 2 diabetes mellitus without complications Status: Acute Assessment and Plan: A1c 7.6 The patient's blood glucose was reviewed on 01/06 Glucose remains well controlled. Lantus held 01/03 but given on 01/04 and 01/05. Not eating much now Continue AccuCheks covering with sliding scale. Hypoglycemia protocol available as needed. Will change Lantus to tongiht dosing and lower dose. (7) Obstructive sleep apnea on CPAP: Code(s): G47.33 - Obstructive sleep apnea (adult) (pediatric); Z99.89 - Dependence on other enabling machines and devices Status: Acute Assessment and Plan: ABG this morning showing 7.41/45/61 on 2L. CPAP ordered but not using. Encourage compliance. (8) Pathologic lumbar vertebral fracture: Code(s): M84.48XA - Pathological fracture, other site, initial encounter for fracture Status: Acute Assessment and Plan: As above (9) Mediastinal lymphadenopathy: Code(s): R59.0 - Localized enlarged lymph nodes Status: Acute Assessment and Plan: as above. Plan DVT prophylaxis: Lovenox Code status: Full Diet: Diabetic Subjective Date/time seen: 01/06/22 11:05 Interval history: 71yo male with DM, HTN and CAD here for back/neck/shoulder pain for about 1 month. Was found to have a left lung mass and lytic bone lesions concerning for metastatic cancer. patient had increasing pain yesterday evening and overnight. Pain is worse with movement. H
[2022-01-06 11:44] LABS: Glucose Point of Care 126 mg/dl (65-105)
[2022-01-06] MEDS: BISACODYL 10 MG SUPPOSITORY RECTAL (12:02)
[2022-01-06] MEDS: MORPHINE SULFATE (*CRX) 15 MG TABCR PO ×2 (12:02→20:51)
--- NOTE | 2022-01-06 13:47 | WPDGICN ---
Assessment and Plan Assessment and plan (1) Abnormal CT scan: Code(s): R93.89 - Abnormal findings on diagnostic imaging of other specified body structures Status: Acute Assessment and Plan: CT scan shows: 1. Ill-defined left hilar mass, consistent with primary bronchogenic carcinoma. 2. Mediastinal and left supraclavicular lymphadenopathy and widespread lytic lesions of bone with multiple pathologic fractures, consistent with metastatic disease. 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 Patient has significant bone pain.? This is most likely etiology of his hypercalcemia. (3) Weight loss: Code(s): R63.4 - Abnormal weight loss Status: Acute Assessment and Plan: he has lost about 25 lb over the last couple of months. (4) Lung cancer metastatic to bone: Code(s): C34.90 - Malignant neoplasm of unspecified part of unspecified bronchus or lung; C79.51 - Secondary malignant neoplasm of bone Status: Acute Assessment and Plan: Pathology report shows: Overall there is metastatic adenocarcinoma.? The morphology and immunophenotype is not entirely specific but it is compatible with upper GI/hepatobiliary primary.? ? Recommend checking the upper GI tract, and pancreas/biliary tree.?? Immunostains are consistent with an upper gastrointestinal malignancy more than primary pulmonary cancer (5) Hypercalcemia: Code(s): E83.52 - Hypercalcemia Status: Acute Assessment and Plan: this could be secondary to osseous metastases Plan because of pathology findings pointing to upper gastrointestinal malignancy, will schedule for EGD to be done tomorrow morning. GI Consult Note Consult date/time: 01/06/22 13:47 HPI: Orville Hong is a 71 year old male with insulin-dependent diabetes, coronary artery disease, sleep apnea, hypertension who has been having severe generalized pain. He recalls having been given an antibiotic for his possible sinus infection last month but since then he began to have pain going up and down his spine. It is worse with any kind of movement. A CT scan of the chest was done that showed findings consistent with a possible lung mass and mediastinal and hilar lymphadenopathy. He had been scheduled to have pulmonary consultation as an outpatient but that had not yet been done. Since admission he has had lymph node biopsy that is consistent with an adenocarcinoma favoring gastrointestinal etiology over pulmonary. Because of his severe pain he is eager to get to the bottom of this. He also has lost about 25 lb in the last several weeks. His appetite is been poor but denies vomiting. is had no abdominal. He denies dysphagia Review of Systems Review of Systems: All systems reviewed & are unremarkable except as noted in HPI and below PMFSH Past Medical History Medical History Basal cell carcinoma, face Essential hypertension Hypertension Hypertriglyceridemia Neurogenic claudication due to lumbar spinal stenosis Obstructive sleep apnea Obstructive sleep apnea on CPAP Peripheral vascular disease Type 2 diabetes mellitus Surgical History Surgical History History of colonoscopy with polypectomy History of hernia repair History of intravascular stent placement Bilateral iliac stents. Family History Family History Father Family history of cardiovascular disease Mother No problems noted. Other Diabet
[2022-01-06 16:34] LABS: Glucose Point of Care 100 mg/dl (65-105)
--- NOTE | 2022-01-06 17:58 | PDONCCN ---
[facility] - Date of Consult Date/Time: 01/06/22 17:58 Requesting Physician: Juan Parker MD Primary Care Provider: Juan Steward MD - Consult Narrative Reason for consult: Metastatic cancer Narrative: Orville Hong is a 71 year old male with history of diabetes, hypertension, coronary artery disease along with history of smoking 1 pack per day for 30 years duration but quit almost 30 years ago came into the hospital with sinus congestion cough and some shortness of breath. He was also having some abdominal pain. Patient also complained of constipation but denies any history of melena hematochezia. He has lost 30 lb weight in last 2 and half months. He has lost his appetite. Denies any dysphagia. CT chest abdomen and pelvis was performed that showed left hilar mass with mediastinal and left supraclavicular lymphadenopathy and widespread lytic lesions with multiple pathological fracture. Brain MRI came back negative for malignancy. Patient had ultrasound-guided biopsy of the left supraclavicular lymph node performed on January 03 and pathology came back positive for metastatic adenocarcinoma likely GI in origin. Lung cancer was unlikely. Review of Systems - Review of Systems All systems reviewed & are unremarkable except as noted in [facility] and [facility] Medical History: Medical History (Last Reviewed 01/06/22 @ 14:12 by Kirt Herrera MD) Basal cell carcinoma, face Essential hypertension Hypertension Hypertriglyceridemia Neurogenic claudication due to lumbar spinal stenosis Obstructive sleep apnea Obstructive sleep apnea on CPAP Peripheral vascular disease Type 2 diabetes mellitus Surgical History: Surgical History (Last Reviewed 01/06/22 @ 14:12 by Kirt Herrera MD) History of colonoscopy with polypectomy History of hernia repair History of intravascular stent placement Bilateral iliac stents. Family History: Family History (Last Reviewed 01/06/22 @ 14:12 by Kirt Herrera MD) Father Family history of cardiovascular disease Mother No problems noted. Other Diabetes mellitus Family history of Alzheimer's disease Hypertension - Social History Social History: Social History (Last Reviewed 01/06/22 @ 14:12 by Kirt Herrera MD) Alcohol Use: Alcohol intake: current Drinks per week: 7 Substance Use: Substance use: never Others: Spiritual care concerns: No Smoking Status: Smoking status: Former smoker Tobacco type: cigarettes Smoking end date: 03/26/99 Smoking Pack-years: Smoking packs per day: 2 Smoking cigarettes per day: 40.0 Years smoked: 30 Smoking pack-years: 60.00 Exam - Vital Signs Vital Signs - 24 hr 01/05/22 20:36 01/05/22 20:00 01/05/22 22:00 Temperature 36.3 C L Pulse Rate 98 110 H Respiratory Rate 16 17 Blood Pressure 138/76 Pulse Oximetry 93 93 94 Oxygen Delivery Nasal Cannula Nasal Cannula Oxygen Flow Rate 1 1 01/06/22 06:00 01/06/22 09:19 01/06/22 08:00 Temperature 36.1 C L Pulse Rate 102 H Respiratory Rate 20 Blood Pressure 188/86 H Pulse Oximetry 94 93 94 Oxygen Delivery Nasal Cannula Nasal Cannula Oxygen Flow Rate 2 1 01/06/22 15:40 Temperature 36.2 C L Pulse Rate 110 H Respiratory Rate 16 Blood Pressure 172/92 H Pulse Oximetry 93 Oxygen Delivery Oxygen Flow Rate - Exam HEENT: EOMI, PERRLA, mucous membranes moist and pink Neck: supple. No: JVD Lungs: clear to auscultation, rhonchi Heart: no murmurs, gallops, or rubs, regular rhythm Abdomen: abdomen soft, non-distended Extremities: normal pulses Integumentary: no abnormalities Neurological: normal speech Psychological: mental status NL - Lab Results Laboratory Last Values WBC 9.6 K/mm3 (4.5-10.0) 01/05/22 07:15 RBC 5.21 M/mm3 (4.6-6.20) 01/05/22 07:15 Hgb 13.8 g/dL (14.0-18.0) L 01/05/22 07:15 Hct 42.7 % (42.0-52.0)
[2022-01-06] MEDS: INSULIN GLARGINE (*BKC) 100 UNITS/ML 30 UNITS SUB-Q (20:40)
[2022-01-06] MEDS: ROSUVASTATIN 10 MG TABLET 40 MG PO (20:52)
[2022-01-06] MEDS: traZODone HCL 50 MG TABLET 200 MG PO (20:53)
[2022-01-06] MEDS: METOPROLOL SUCCINATE EXT REL 50 MG TABCR PO (20:53)
[2022-01-06] MEDS: LIDOCAINE 5% PATCH 1 PATCH TRANSDERM (20:54)
[2022-01-06 21:45] LABS: Glucose Point of Care 134 mg/dl (65-105)
--- NOTE | 2022-01-06 23:05 | WPDANESEPP ---
Anes - Eval Pre Procedure Procedure: Operation Date: 01/07/22 07:30 Proposed Procedures p Esophagogastroduodenoscopy EGD - Kirt Herrera MD Date/Time: 01/06/22 23:05 Pre Op Diagnosis: Lung Cancer w metastasis/postobstructive pneumonia Patient Data Age: 71 Gender: M Height: 1.78 m Weight: 98.9 kg Last Vital Signs Temp 98.3 F 01/06/22 21:18 Pulse 125 H 01/06/22 21:18 Resp 20 01/06/22 21:18 BP 175/87 H 01/06/22 21:18 Pulse Ox 90 01/06/22 21:18 O2 Del Method Nasal Cannula 01/06/22 09:19 O2 Flow Rate 2 01/06/22 09:19 Allergies Allergy/AdvReac Type Severity Reaction Status Date / Time No Known Allergies Allergy Verified 01/02/22 08:20 Home Medications Medication Instructions Recorded Confirmed Type aspirin 81 mg tablet,delayed 81 mg PO DAILY 02/24/19 01/02/22 History release (Adult Aspirin Regimen) pen needle, diabetic 31 gauge x #400 ea 01/01/20 12/27/21 Rx 3/16 (BD Ultra-Fine Mini Pen Needle) fluticasone propionate 50 2 spray intranasal DAILY #9.9 mL 09/24/20 01/02/22 Rx mcg/actuation nasal spray,suspension (Flonase Allergy Relief) blood sugar diagnostic (OneTouch #400 ea 12/27/20 12/27/21 Rx Verio test strips) triamterene 37.5 1 cap PO DAILY #90 caps 03/28/21 01/02/22 Rx mg-hydrochlorothiazide 25 mg capsule potassium 99 mg tablet 99 mg PO DAILY 04/20/21 01/02/22 History insulin glargine U-300 conc 300 100 unit (0.3333 mL) subcut DAILY 05/26/21 01/02/22 Rx unit/mL (3 mL) subcutaneous pen 90 days #36 mL (Toujeo Max U-300 SoloStar) insulin lispro 100 unit/mL 10 - 25 unit (0.1 - 0.25 mL) 05/26/21 01/02/22 Rx subcutaneous pen subcut TIDWMEAL 90 days #67.5 mL lisinopril 40 mg tablet 40 mg PO DAILY #90 tabs 06/20/21 01/02/22 Rx metformin 1,000 mg tablet 1,000 mg PO BID 90 days #180 tabs 07/08/21 01/02/22 Rx trazodone 100 mg tablet 200 mg PO DAILY #180 tabs 10/19/21 01/02/22 Rx rosuvastatin 40 mg tablet 40 mg PO .HS #90 tabs 11/23/21 01/02/22 Rx benzonatate 200 mg capsule 200 mg PO TID PRN cough #30 caps 12/14/21 01/02/22 Rx doxycycline monohydrate 100 mg 100 mg PO Q12H #20 caps 12/14/21 01/02/22 Rx capsule fluticasone 250 mcg-salmeterol 50 1 inh inhalation BID #60 ea 12/14/21 01/02/22 Rx mcg/dose blistr powdr for inhalation (Advair Diskus) cyclobenzaprine 5 mg tablet 5 mg PO TID PRN muscle spasm #30 12/27/21 01/02/22 Rx tabs hydrocodone 5 mg-acetaminophen 325 1 tablet PO Q6H PRN pain #28 tabs 12/27/21 01/02/22 Rx mg tablet empagliflozin 25 mg tablet 25 mg PO DAILY 01/02/22 01/02/22 History (Jardiance) fenofibrate nanocrystallized 145 145 mg PO DAILY 01/02/22 01/02/22 History mg tablet metoprolol succinate 50 mg 50 mg PO HS 01/02/22 01/02/22 History tablet,extended release 24 hr Laboratory Tests 01/06/22 01/06/22 01/06/22 06:19 07:50 11:39 Sodium 141 mmol/L mmol/L (137-145) Potassium 3.1 mmol/L L mmol/L (3.4-5.0) Chloride 99 mmol/L mmol/L (98-107) Carbon Dioxide 32 mmol/L H mmol/L (22-30) Anion Gap 10 mmol/L mmol/L (8-16) BUN 22 mg/dL H mg/dL (9-20) Creatinine 1.00 mg/dL mg/dL (0.7-1.3) Estim Creat Clear Calc 73 ml/min ml/min Estimated GFR > 60 (59 - ) Glucose 113 mg/dL H mg/dL (65-110) POC Capillary Glucose 105 mg/dl mg/dl 126 mg/dl H mg/dl (65-105) (65-105) Calcium 12.3 mg/dL H mg/dL (8.4-10.2) CA 19-9 Antigen 01/06/22 01/06/22 01/06/22 16:15 19:25 20:14 Sodium Potassium Chloride Carbon Dioxide Anion Gap BUN Creatinine Estim Creat Clear Calc Estimated GFR Glucose POC Capillary Glucose 100 mg/dl mg/dl 134 mg/dl H mg/dl (65-105) (65-105) Calcium CA 19-9 Antigen Pending Patient hx ane
[2022-01-07] VITALS (19 sets, daily range): BP systolic 111–185; BP diastolic 54–93; PULSE 105–139; RESP 18–32; TEMP 36.6–39.2; O2SAT 92–97
[2022-01-07 00:42] LABS: Vitamin D 1,25 (OH)2 Total 12 pg/mL (18-72); Vitamin D2 1,25 (OH)2 <8 pg/mL; Vitamin D3 1,25 (OH)2 12 pg/mL
[2022-01-07] MEDS: MORPHINE SULFATE (*CRX) 2 MG/ML INJ IV PUSH ×3 (01:26→11:22)
[2022-01-07] MEDS: LIDOCAINE HCL 2% JELLY 5 ML TUBE 1 APPLIC MUCOUS MEM (03:31)
[2022-01-07] MEDS: oxyCODONE HCL (*CRX) 5 MG TAB IR 10 MG PO (03:39)
[2022-01-07 07:18] LABS: Glucose Point of Care 98 mg/dl (65-105)
[2022-01-07] MEDS: LACTATED RINGERS 1,000 ML 150 ML IV CONT (07:19)
--- NOTE | 2022-01-07 07:30 | WPDANESEPPF ---
Anes - Initial Pre Proc Eval Procedure: Operation Date: 01/07/22 07:30 Proposed Procedures p Esophagogastroduodenoscopy EGD - Kirt Herrera MD Date/Time: 01/07/22 07:30 Surgeon: Juan Parker MD Pre Op Diagnosis: Lung Cancer w metastasis/postobstructive pneumonia Patient Data Age: 71 Gender: M Height: 1.78 m Weight: 98.9 kg Last Vital Signs Temp 36.6 C 01/07/22 07:17 Pulse 124 H 01/07/22 07:17 Resp 22 H 01/07/22 07:17 BP 128/76 01/07/22 07:17 Pulse Ox 97 01/07/22 07:17 O2 Del Method Nasal Cannula 01/07/22 00:15 O2 Flow Rate 3 01/07/22 00:15 Allergies Allergy/AdvReac Type Severity Reaction Status Date / Time No Known Allergies Allergy Verified 01/02/22 08:20 Home Medications Medication Instructions Recorded Confirmed Type aspirin 81 mg tablet,delayed 81 mg PO DAILY 02/24/19 01/02/22 History release (Adult Aspirin Regimen) pen needle, diabetic 31 gauge x #400 ea 01/01/20 12/27/21 Rx 3/16 (BD Ultra-Fine Mini Pen Needle) fluticasone propionate 50 2 spray intranasal DAILY #9.9 mL 09/24/20 01/02/22 Rx mcg/actuation nasal spray,suspension (Flonase Allergy Relief) blood sugar diagnostic (OneTouch #400 ea 12/27/20 12/27/21 Rx Verio test strips) triamterene 37.5 1 cap PO DAILY #90 caps 03/28/21 01/02/22 Rx mg-hydrochlorothiazide 25 mg capsule potassium 99 mg tablet 99 mg PO DAILY 04/20/21 01/02/22 History insulin glargine U-300 conc 300 100 unit (0.3333 mL) subcut DAILY 05/26/21 01/02/22 Rx unit/mL (3 mL) subcutaneous pen 90 days #36 mL (Toujeo Max U-300 SoloStar) insulin lispro 100 unit/mL 10 - 25 unit (0.1 - 0.25 mL) 05/26/21 01/02/22 Rx subcutaneous pen subcut TIDWMEAL 90 days #67.5 mL lisinopril 40 mg tablet 40 mg PO DAILY #90 tabs 06/20/21 01/02/22 Rx metformin 1,000 mg tablet 1,000 mg PO BID 90 days #180 tabs 07/08/21 01/02/22 Rx trazodone 100 mg tablet 200 mg PO DAILY #180 tabs 10/19/21 01/02/22 Rx rosuvastatin 40 mg tablet 40 mg PO .HS #90 tabs 11/23/21 01/02/22 Rx benzonatate 200 mg capsule 200 mg PO TID PRN cough #30 caps 12/14/21 01/02/22 Rx doxycycline monohydrate 100 mg 100 mg PO Q12H #20 caps 12/14/21 01/02/22 Rx capsule fluticasone 250 mcg-salmeterol 50 1 inh inhalation BID #60 ea 12/14/21 01/02/22 Rx mcg/dose blistr powdr for inhalation (Advair Diskus) cyclobenzaprine 5 mg tablet 5 mg PO TID PRN muscle spasm #30 12/27/21 01/02/22 Rx tabs hydrocodone 5 mg-acetaminophen 325 1 tablet PO Q6H PRN pain #28 tabs 12/27/21 01/02/22 Rx mg tablet empagliflozin 25 mg tablet 25 mg PO DAILY 01/02/22 01/02/22 History (Jardiance) fenofibrate nanocrystallized 145 145 mg PO DAILY 01/02/22 01/02/22 History mg tablet metoprolol succinate 50 mg 50 mg PO HS 01/02/22 01/02/22 History tablet,extended release 24 hr Laboratory Tests 01/03/22 01/06/22 01/06/22 06:15 07:50 11:39 POC Capillary Glucose 105 mg/dl mg/dl 126 mg/dl H mg/dl (65-105) (65-105) CA 19-9 Antigen Vit D 1,25-Dihyd Total 12 pg/mL L pg/mL (18-72) 1,25 Dihydroxy Vit D2 <8 pg/mL pg/mL 1,25 Dihydroxy Vit D3 12 pg/mL pg/mL 01/06/22 01/06/22 01/06/22 16:15 19:25 20:14 POC Capillary Glucose 100 mg/dl mg/dl 134 mg/dl H mg/dl (65-105) (65-105) CA 19-9 Antigen Pending Vit D 1,25-Dihyd Total 1,25 Dihydroxy Vit D2 1,25 Dihydroxy Vit D3 01/07/22 07:15 POC Capillary Glucose 98 mg/dl mg/dl (65-105) CA 19-9 Antigen Vit D 1,25-Dihyd Total 1,25 Dihydroxy Vit D2 1,25 Dihydroxy Vit D3 Patient hx anesthesia problems: none Family hx anesthesia problems: none Results Review: All pre-operative results and documents have been reviewed as part of the pre-operative evaluation. [facility] Past Medical History Medical History Basal cell carcinoma
[2022-01-07 08:06] LABS: Glucose Point of Care 91 mg/dl (65-105)
--- NOTE | 2022-01-07 08:31 | PC.NURSE ---
pt back in room via stretcher from EGD procedure.
[2022-01-07] MEDS: ENOXAPARIN 40 MG/0.4 ML SYRINGE SUB-Q (08:38)
[2022-01-07] MEDS: BISACODYL 10 MG SUPPOSITORY RECTAL (08:38)
[2022-01-07] MEDS: EMPAGLIFLOZIN 25 MG TABLET PO (08:39)
[2022-01-07] MEDS: lisinopriL 20 MG TABLET 40 MG PO (08:39)
[2022-01-07] MEDS: polyethylene glycoL 3350 17 GM POWD.PACK PO ×2 (08:39→16:44)
[2022-01-07] MEDS: MORPHINE SULFATE (*CRX) 15 MG TABCR PO (08:39)
[2022-01-07] MEDS: FENOFIBRATE NANOCRYSTALLIZED 145 MG TABLET PO (08:39)
--- NOTE | 2022-01-07 08:44 | SUR.PHASEII ---
Gave report to OBINNA Gutierrez of room 319.
[2022-01-07] MEDS: FLUTICASONE/SALMETEROL 115-21 MCG INHALER 1 PUFF 2 PUFF INHALATION ×2 (08:59→20:20)
--- NOTE | 2022-01-07 10:53 | ECG_ITS ---
Measurements Intervals [place] Rate: 144 P: 82 [place]: 127 QRS: -43 QRSD: 81 T: 67 QT: 349 QTc: 541 Interpretive Statements SINUS TACHYCARDIA BASELINE ARTIFACT LEFT AXIS DEVIATION PATTERN CONSISTENT WITH PULMONARY DISEASE ABNORMAL ECG COMPARED TO ECG 01/02/2022 07:58:52 HEART RATE HAS INCREASED Electronically Signed On 01-07-2022 15:27:35 CDT by Juan Chaves M.D.
[2022-01-07 10:58] LABS: Glucose Point of Care 131 mg/dl (65-105)
--- NOTE | 2022-01-07 11:24 | PC.NURSE ---
Left message for patient's for condition update. Pending response.
--- NOTE | 2022-01-07 11:39 | PC.NURSE ---
Patient's returned phone call. Updated on patient's condition and patient's new room number. Voiced understanding and stated will be here in about 10 minutes.
--- NOTE | 2022-01-07 11:40 | PM.IMPN ---
Progress Note: A&P Assessment and Plan (1) Altered mental status: Code(s): R41.82 - Altered mental status, unspecified Status: Acute Assessment and Plan: Patient return from the EGD this morning and was alert and appropriate per nursing staff. He received his MS Contin after he returned and then became quite confused. Suspect his confusion is based on medications. Brain MRI yesterday showed no acute findings. Will stop his MS Contin. Will hold his narcotics. Continue Tylenol and Ultram. When patient becomes more awake and alert, would consider trying anxiolytics try to improve his pain. Sitter at bedside. Bladder scan as needed. Will keep catheter out for now. (2) Mass of left lung: Code(s): R91.8 - Other nonspecific abnormal finding of lung field Status: Acute Assessment and Plan: CT of the chest showing no pulmonary emboli but does show airspace opacity in left upper lobe consistent with pneumonia. This is concerning for postobstructive pneumonia. He has a left hilar mass consistent with primary bronchogenic carcinoma though path points more to a GI source. Diffuse adenopathy noted as well. Lymph node biopsy performed on 01/03/2022 with path showing adenocarcinoma. Concerning for lung cancer primary with metastatic bone lesions but can not exclude other etiologies. 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 Patient has significant bone pain. This is most likely etiology of his hypercalcemia. The pain is causing the tachycardia and elevated BP. No PE by CTA; no DVT by doppler. Neurosurgery was consulted and appreciate his input. Continue heating pad and Lidoderm patches. Continue scheduled IV Tylenol. Increase activity as tolerated. Continue PT/OT. More confused so will hold narcotics and stop MS Contin. Brain MRI showing no metastasis (noncontrast). No significant spinal impingement in MRI of the C/T/L/S. As above. (4) Adenocarcinoma: Code(s): C80.1 - Malignant (primary) neoplasm, unspecified Status: Acute Assessment and Plan: Pathology returned as adenocarcinoma. Spoke with pathologist on 01/06/2022 felt that this might be a GI source of cancer. EGD today showed nonerosive reflux disease and gastric retention. No evidence of malignancy. SPEP and UPEP have been ordered. Patient and family were updated yesterday. Oncology was consulted and appreciate their input. (5) Postobstructive pneumonia: Code(s): J18.9 - Pneumonia, unspecified organism Status: Acute Assessment and Plan: CT chest showing post-obstructive PNA PHYLICIA on 01/02. CXR 01/05 showing stable opacities in the left mid and upper lung. He remains on 3L currently. BCx remain negative. WBC normal now. No fevers. Wean O2 as tolerated. Encouraged patient to be out of bed as tolerated. Continue IV abx. Encouraged IS use. (6) Hypercalcemia: Code(s): E83.52 - Hypercalcemia Status: Acute Assessment and Plan: Calcium elevated on admission and has remained elevated despite IV fluids. Vit D level normal. Zoledronic acid once 01/06. (7) Essential hypertension: Code(s): I10 - Essential (primary) hypertension Status: Acute Assessment and Plan: Patient's blood pressure was reviewed on 01/07 Blood pressure elevated at times but better today. Will continue his current medications and continue to try to improve his pain. (8) Type 2 diabetes mellitus: Code(s): E11.9 - Type 2 diabetes mellitus without complications Status: Acute Assessment and Plan: A1c 7.6 The patient's blood glucose was reviewed on 01/07 Glucose remains well controlled. Lantus was held perio
[2022-01-07 11:58] LABS: Glucose Point of Care 132 mg/dl (65-105)
--- NOTE | 2022-01-07 13:27 | PCPTNOTE ---
Attempted physical therapy initial evaluation, per RN pt is disoriented and A&O x1 when usually he is completed oriented. Holding for today, will continue to follow.
[2022-01-07 13:34] LABS: Basophils Percent Auto 0.4 % (0.2-1.2); Eosinophils Percent Auto 0.3 % (0-4.4); Hematocrit 43.2 % (42.0-52.0); Hemoglobin 13.9 g/dL (14.0-18.0); Lymphocytes Absolute Auto 0.41 K/mm3 (0.9-3.2); Lymphocytes Percent Auto 4.1 % (18.3-44.2); Mean Corpuscular HGB Conc 32.2 g/dl (32-36); Mean Corpuscular Hemoglobin 26.1 pg (26-34); Mean Corpuscular Volume 81.1 fl (80-100); Mean Platelet Volume 9.1 fl (7.4-10.4); Monocytes Absolute Auto 0.7 K/mm3 (0.1-0.6); Monocytes Percent Auto 6.6 % (2.6-8.5); Neutrophils Absolute Auto 8.7 K/mm3 (1.3-6.7); Neutrophils Percent Auto 87.6 % (45.5-73.1); Platelet Count Result 244 k/mm3 (150-375); Red Blood Count 5.33 M/mm3 (4.6-6.20); Red Cell Distribution Width 14.5 % (11.5-14.5)
[2022-01-07 14:02] LABS: Alanine Aminotransferase 18 U/L (6-50); Albumin Level 3.6 g/dL (3.5-5.1); Alkaline Phosphatase 106 U/L (38-126); Anion Gap 10 mmol/L (8-16); Aspartate Amino Transferase 42 U/L (17-59); Bilirubin,Total 0.6 mg/dL (0.2-1.3); Blood Urea Nitrogen 26 mg/dL (9-20); Calcium 11.3 mg/dL (8.4-10.2); Carbon Dioxide 30 mmol/L (22-30); Chloride 102 mmol/L (98-107); Estimated CRCL calculation 57 ml/min; Estimated Glomerular Filt Rate 55; Glucose 132 mg/dL (65-110); Magnesium 2.6 mg/dL (1.6-2.3); Phosphorus 3.2 mg/dL (2.5-4.5); Potassium 3.3 mmol/L (3.4-5.0); Sodium 142 mmol/L (137-145)
[2022-01-07] MEDS: ACETAMINOPHEN 325 MG TABLET 650 MG PO (14:19)
--- NOTE | 2022-01-07 16:24 | PCOTNOTE ---
Attempted OT evaluation, per RN pt is disoriented and A&O x1 when usually he is completed oriented. Holding for today, will continue to follow.
[2022-01-07] MEDS: IBUPROFEN 400 MG TABLET PO (16:44)
[2022-01-07] MEDS: KCL 20 MEQ/D5/0.9% SOD CHL 1,000 ML 70 ML IV CONT (16:44)
[2022-01-07 16:50] LABS: Glucose Point of Care 142 mg/dl (65-105)
--- NOTE | 2022-01-07 17:29 | PC.NURSE ---
bladder scanned performed per order. highest reading was 198, order reads to call md if greater than 400. will continue to bladder scan as needed per order.
[2022-01-07 18:39] LABS: Glucose Point of Care 125 mg/dl (65-105)
[2022-01-07] MEDS: INSULIN GLARGINE (*BKC) 100 UNITS/ML 30 UNITS SUB-Q (20:34)
[2022-01-07] MEDS: LIDOCAINE 5% PATCH 1 PATCH TRANSDERM (20:35)
[2022-01-07] MEDS: METOPROLOL SUCCINATE EXT REL 50 MG TABCR PO (20:35)
[2022-01-07] MEDS: ROSUVASTATIN 10 MG TABLET 40 MG PO (20:36)
[2022-01-07] MEDS: traZODone HCL 50 MG TABLET 200 MG PO (20:36)
[2022-01-07 21:25] LABS: Glucose Point of Care 122 mg/dl (65-105)
[2022-01-07] MEDS: traMADol HCL (*CRX) 25 MG TABLET PO (23:19)
[2022-01-08] VITALS (11 sets, daily range): BP systolic 146; BP diastolic 77; PULSE 84–120; RESP 22; TEMP 37.1–37.4; O2SAT 90–95
[2022-01-08] MEDS: traMADol HCL (*CRX) 25 MG TABLET PO ×4 (05:26→21:05)
[2022-01-08 07:58] LABS: Glucose Point of Care 143 mg/dl (65-105)
[2022-01-08 08:04] LABS: Anion Gap 9 mmol/L (8-16); Blood Urea Nitrogen 27 mg/dL (9-20); Carbon Dioxide 30 mmol/L (22-30); Chloride 102 mmol/L (98-107); Estimated CRCL calculation 66 ml/min; Estimated Glomerular Filt Rate > 60; Glucose 139 mg/dL (65-110); Potassium 3.3 mmol/L (3.4-5.0); Sodium 141 mmol/L (137-145)
[2022-01-08] MEDS: FLUTICASONE/SALMETEROL 115-21 MCG INHALER 1 PUFF 2 PUFF INHALATION ×2 (08:10→21:15)
[2022-01-08] MEDS: KCL 20 MEQ/D5/0.9% SOD CHL 1,000 ML 70 ML IV CONT (08:27)
[2022-01-08] MEDS: EMPAGLIFLOZIN 25 MG TABLET PO (08:28)
[2022-01-08] MEDS: ENOXAPARIN 40 MG/0.4 ML SYRINGE SUB-Q (08:28)
[2022-01-08] MEDS: FENOFIBRATE NANOCRYSTALLIZED 145 MG TABLET PO (08:28)
[2022-01-08] MEDS: polyethylene glycoL 3350 17 GM POWD.PACK PO ×2 (08:28→17:03)
[2022-01-08] MEDS: FLUTICASONE PROPIONATE 0.05% NA SPR 16 GM BTL (*BKC) 2 SPRAY NASAL (08:28)
[2022-01-08] MEDS: lisinopriL 20 MG TABLET 40 MG PO (08:28)
[2022-01-08] MEDS: BISACODYL 10 MG SUPPOSITORY RECTAL (08:28)
[2022-01-08] MEDS: ACETAMINOPHEN 325 MG TABLET 650 MG PO ×2 (08:38→21:04)
[2022-01-08 11:48] LABS: Glucose Point of Care 192 mg/dl (65-105)
--- NOTE | 2022-01-08 14:43 | PM.IMPN ---
Progress Note: A&P Assessment and Plan (1) Altered mental status: Code(s): R41.82 - Altered mental status, unspecified Status: Acute Assessment and Plan: Patient return from the EGD yesterday morning and was alert and appropriate per nursing staff. He received his MS Contin after he returned and then became quite confused. Suspect his confusion is based on medications. Brain MRI 01/06 showed no acute findings. We stopped his MS Contin and held his narcotics. He did develop fever later in the day so sepsis could be causing his confusion. He had BCx repeated and abx adjusted to Vanco and Primaxin. Continue Tylenol for pain and fever. He is much improved. Continue to follow. BCx NGTD. Continue current abx. (2) Postobstructive pneumonia: Code(s): J18.9 - Pneumonia, unspecified organism Status: Acute Assessment and Plan: CT chest showing post-obstructive PNA PHYLICIA on 01/02. CXR 01/05 showing stable opacities in the left mid and upper lung. He remains on O2 currently. BCx remain negative. WBC normal now. No fevers. Higher O2 requirement. Wean O2 as tolerated. Encouraged patient to be out of bed as tolerated. Continue IV abx. Encouraged IS use. Check CXR. Stop IV fluids. Consider aspiration when he was confused. (3) Fever: Code(s): R50.9 - Fever, unspecified Status: Acute Assessment and Plan: As above (4) Mass of left lung: Code(s): R91.8 - Other nonspecific abnormal finding of lung field Status: Acute Assessment and Plan: CT of the chest showing no pulmonary emboli but does show airspace opacity in left upper lobe consistent with pneumonia. This is concerning for postobstructive pneumonia. He has a left hilar mass consistent with primary bronchogenic carcinoma though path points more to a GI source. Diffuse adenopathy noted as well. Lymph node biopsy performed on 01/03/2022 with path showing adenocarcinoma. EGD did not show any concerns for cancer. Oncology is following. (5) Lytic bone lesions on xray: Code(s): M89.9 - Disorder of bone, unspecified Status: Acute Assessment and Plan: Patient appears to have diffuse metastatic cancer to the bone that has resulted in pathologic fractures of T2, burst T3, left T9 transverse process, T11, L1, L2 and left 1st rib. Patient has significant bone pain. This is most likely etiology of his hypercalcemia. The pain is causing the tachycardia and elevated BP. No PE by CTA; no DVT by doppler. Brain MRI showing no metastasis (noncontrast). No significant spinal impingement in MRI of the C/T/L/S. Neurosurgery was consulted and appreciate his input. Continue heating pad and Lidoderm patches. Continue Tylenol and ultram. Increase activity as tolerated. Continue PT/OT. Continue to hold narcotics. (6) Adenocarcinoma: Code(s): C80.1 - Malignant (primary) neoplasm, unspecified Status: Acute Assessment and Plan: Pathology returned as adenocarcinoma. Spoke with pathologist on 01/06/2022 felt that this might be a GI source of cancer. EGD showed nonerosive reflux disease and gastric retention. No evidence of malignancy. SPEP and UPEP have been ordered. Patient and family have been updated. Oncology was consulted and appreciate their input. (7) Hypercalcemia: Code(s): E83.52 - Hypercalcemia Status: Acute Assessment and Plan: Calcium elevated on admission and had remained elevated despite IV fluids. Vit D level normal. Zoledronic acid once 01/06. Calcium level back down today. (8) Essential hypertension: Code(s): I10 - Essential (primary) hypertension Status: Acute Assessment and Plan: Patient's blood pressure was reviewed on 01/08 Blood pressure elevated at times Will continue his current medications and continue to try to improve his pain. (9) Type 2 diabetes mellitus: Code(s): E11.9 - Type 2 diabetes mellitus without
[2022-01-08 16:25] LABS: Glucose Point of Care 244 mg/dl (65-105)
[2022-01-08] MEDS: INSULIN ASPART (*BKC) 100 UNITS/ML SUB-Q (17:04)
--- NOTE | 2022-01-08 18:15 | PC.NURSE ---
order for enema received. pt has had 4-5 large BM's today. pt stated also has been loose. states having some relief of abd discomfort. at this time pt is resting in bed and very tired. pt requesting to hold off on enema at this time, but is not refusing it.
[2022-01-08] MEDS: LIDOCAINE 5% PATCH 1 PATCH TRANSDERM (21:00)
[2022-01-08 21:01] LABS: Glucose Point of Care 196 mg/dl (65-105)
[2022-01-08] MEDS: ROSUVASTATIN 10 MG TABLET 40 MG PO (21:45)
[2022-01-08] MEDS: traZODone HCL 50 MG TABLET 200 MG PO (21:45)
[2022-01-08] MEDS: METOPROLOL SUCCINATE EXT REL 50 MG TABCR PO (21:46)
[2022-01-08] MEDS: INSULIN GLARGINE (*BKC) 100 UNITS/ML 30 UNITS SUB-Q (21:47)
[2022-01-09] VITALS (10 sets, daily range): BP systolic 153–163; BP diastolic 82–96; PULSE 104–116; RESP 20–24; TEMP 36.4–37.1; O2SAT 95–96
[2022-01-09] MEDS: traMADol HCL (*CRX) 25 MG TABLET PO (01:24)
[2022-01-09 02:07] LABS: Basophils Percent Auto 0.3 % (0.2-1.2); Eosinophils Absolute Auto 0.1 K/mm3 (0-0.3); Eosinophils Percent Auto 0.7 % (0-4.4); Hematocrit 38.6 % (42.0-52.0); Hemoglobin 12.5 g/dL (14.0-18.0); Immature Granulocyte Absolute 0.09 K/mm3 (0.00-0.031); Immature Granulocyte Percent A 0.8 % (0-0.5); Lymphocytes Absolute Auto 0.89 K/mm3 (0.9-3.2); Lymphocytes Percent Auto 7.9 % (18.3-44.2); Mean Corpuscular HGB Conc 32.4 g/dl (32-36); Mean Corpuscular Hemoglobin 26.2 pg (26-34); Mean Corpuscular Volume 80.9 fl (80-100); Mean Platelet Volume 9.1 fl (7.4-10.4); Monocytes Percent Auto 8.5 % (2.6-8.5); Neutrophils Absolute Auto 9.3 K/mm3 (1.3-6.7); Neutrophils Percent Auto 81.8 % (45.5-73.1); Platelet Count Result 223 k/mm3 (150-375); Red Blood Count 4.77 M/mm3 (4.6-6.20); Red Cell Distribution Width 14.5 % (11.5-14.5); White Blood Count 11.3 K/mm3 (4.5-10.0)
[2022-01-09 02:21] LABS: Alanine Aminotransferase 18 U/L (6-50); Albumin Level 3.3 g/dL (3.5-5.1); Alkaline Phosphatase 100 U/L (38-126); Anion Gap 6 mmol/L (8-16); Aspartate Amino Transferase 50 U/L (17-59); Bilirubin,Total 0.5 mg/dL (0.2-1.3); Blood Urea Nitrogen 29 mg/dL (9-20); Calcium 9.4 mg/dL (8.4-10.2); Carbon Dioxide 30 mmol/L (22-30); Chloride 105 mmol/L (98-107); Estimated CRCL calculation 66 ml/min; Estimated Glomerular Filt Rate > 60; Glucose 137 mg/dL (65-110); Magnesium 2.7 mg/dL (1.6-2.3); Phosphorus 2.5 mg/dL (2.5-4.5); Sodium 141 mmol/L (137-145)
[2022-01-09 02:38] LABS: Vancomycin Trough 12.6 ug/mL (10.0-20.0)
[2022-01-09 03:08] LABS: CRP 28.8 mg/dL (<1.0)
[2022-01-09] MEDS: MORPHINE SULFATE (*CRX) 2 MG/ML INJ IV PUSH ×2 (05:20→09:19)
[2022-01-09] MEDS: FLUTICASONE/SALMETEROL 115-21 MCG INHALER 1 PUFF 2 PUFF INHALATION ×2 (08:10→20:20)
[2022-01-09 08:21] LABS: Glucose Point of Care 119 mg/dl (65-105)
[2022-01-09] MEDS: polyethylene glycoL 3350 17 GM POWD.PACK PO (09:43)
[2022-01-09] MEDS: ENOXAPARIN 40 MG/0.4 ML SYRINGE SUB-Q (09:43)
[2022-01-09] MEDS: POTASSIUM CHLORIDE 20 MEQ TABLET 40 MEQ PO (09:43)
[2022-01-09] MEDS: lisinopriL 20 MG TABLET 40 MG PO (09:43)
[2022-01-09] MEDS: FENOFIBRATE NANOCRYSTALLIZED 145 MG TABLET PO (09:44)
[2022-01-09] MEDS: EMPAGLIFLOZIN 25 MG TABLET PO (09:44)
[2022-01-09] MEDS: FLUTICASONE PROPIONATE 0.05% NA SPR 16 GM BTL (*BKC) 2 SPRAY NASAL (09:44)
[2022-01-09] MEDS: oxyCODONE HCL (*CRX) 10 MG TAB SR 12HR PO ×2 (09:49→21:40)
--- NOTE | 2022-01-09 10:09 | PCSTNOTE ---
Please refer to the Bedside Swallow Evaluation in the EMR. Please note, silent aspiration cannot be ruled out at bedside.
[2022-01-09 11:11] LABS: Glucose Point of Care 159 mg/dl (65-105)
--- NOTE | 2022-01-09 14:51 | PM.IMPN ---
Progress Note: A&P Assessment and Plan (1) Altered mental status: Code(s): R41.82 - Altered mental status, unspecified Status: Acute Assessment and Plan: Patient return from the EGD 01/07 and was alert and appropriate per nursing staff. He received his MS Contin after he returned and then became quite confused. Suspect his confusion is based on medications. Brain MRI 01/06 showed no acute findings. We stopped his MS Contin and held his narcotics. He did develop fever later in the day so sepsis could be causing his confusion. BCx repeated and abx adjusted to Vanco and Primaxin. BCx NGTD. Continue Tylenol for pain and fever. He is much improved. Continue to follow. Continue current abx. (2) Postobstructive pneumonia: Code(s): J18.9 - Pneumonia, unspecified organism Status: Acute Assessment and Plan: CT chest showing post-obstructive PNA PHYLICIA on 01/02. CXR 01/05 showing stable opacities in the left mid and upper lung. He remains on O2 currently. BCx negative and repeat BCx remain NGTD. WBC up slightly. No fevers now. CXR 01/08 showing no change. O2 requirement slightly better. Wean O2 as tolerated. Encouraged patient to be out of bed as tolerated. Continue IV abx. Encouraged IS use. (3) Fever: Code(s): R50.9 - Fever, unspecified Status: Acute Assessment and Plan: As above (4) Mass of left lung: Code(s): R91.8 - Other nonspecific abnormal finding of lung field Status: Acute Assessment and Plan: CT of the chest showing no pulmonary emboli but does show airspace opacity in left upper lobe consistent with pneumonia. This is concerning for postobstructive pneumonia. He has a left hilar mass consistent with primary bronchogenic carcinoma though path points more to a GI source. Diffuse adenopathy noted as well. Lymph node biopsy performed on 01/03/2022 with path showing adenocarcinoma. EGD did not show any concerns for GI cancer. Oncology is following. (5) Lytic bone lesions on xray: Code(s): M89.9 - Disorder of bone, unspecified Status: Acute Assessment and Plan: Patient appears to have diffuse metastatic cancer to the bone that has resulted in pathologic fractures of T2, burst T3, left T9 transverse process, T11, L1, L2 and left 1st rib. Patient has significant bone pain. This is most likely etiology of his hypercalcemia. The pain is causing the tachycardia and elevated BP. No PE by CTA; no DVT by doppler. Brain MRI showing no metastasis (noncontrast). No significant spinal impingement in MRI of the C/T/L/S. Neurosurgery was consulted and appreciate his input. Continue heating pad and Lidoderm patches. Continue Tylenol and ultram. Increase activity as tolerated. Continue PT/OT. Add low dose Oxycontin. Decrease IV Morphine (6) Adenocarcinoma: Code(s): C80.1 - Malignant (primary) neoplasm, unspecified Status: Acute Assessment and Plan: Pathology returned as adenocarcinoma. Spoke with pathologist on 01/06/2022 felt that this might be a GI source of cancer. EGD showed nonerosive reflux disease and gastric retention. No evidence of malignancy. SPEP and UPEP have been ordered. Patient and family have been updated. Oncology was consulted and appreciate their input. (7) Hypercalcemia: Code(s): E83.52 - Hypercalcemia Status: Acute Assessment and Plan: Calcium elevated on admission and had remained elevated despite IV fluids. Vit D level normal. Zoledronic acid once 01/06. Calcium level back down to normal (8) Essential hypertension: Code(s): I10 - Essential (primary) hypertension Status: Acute Assessment and Plan: Patient's blood pressure was reviewed on 01/09 Blood pressure elevated at times possibly related to pain Will continue his current medications and continue to try to improve his pain. (9) Type 2 diabetes mellitus: Code(s): E11.9 - Type 2 diab
[2022-01-09 16:16] LABS: Glucose Point of Care 116 mg/dl (65-105)
--- NOTE | 2022-01-09 18:36 | WPDONCPN ---
Progress Note: A/P - Additional Plan Metastatic adenocarcinoma status post left supraclavicular lymph node biopsy. Pathology reviewed. Biopsy showed adenocarcinoma likely GI origin. EGD showed no evidence of malignancy. Patient would need PET scan as an outpatient. I will check CA 19-9. We will also ask pathology to do molecular profiling of this adenocarcinoma.I have discussed this with patient today. I have also discussed this with Dr. Mejia. - Time Spent With Patient Total time spent is greater than 50% in coordination of care (as documented) at patient's floor/unit and/or counseling patient: 15 - 25 minutes Subjective Interval history: Metastatic adenocarcinoma Review of Systems - Review of Systems All systems reviewed & are unremarkable except as noted in HPI and bel Exam Vital signs: Temp Pulse Resp BP Pulse Ox O2 Del Method O2 Flow Rate 36.7 C 106 H 20 153/93 H 96 Nasal Cannula 4 01/09/22 16:00 01/09/22 16:00 01/09/22 16:00 01/09/22 16:00 01/09/22 16:00 01/08/22 21:18 01/08/22 21:18 Narrative: Lungs are clear to auscultation bilaterally Cardiovascular regular rate rhythm no murmurs Abdomen soft nontender nondistended Extremities no edema PN: Objective Data - Labs CBC & Chem 7: 01/09/22 02:02 01/09/22 02:02 Labs: Laboratory Results - last 24 hr 01/08/22 01/09/22 01/09/22 20:57 02:02 02:02 WBC 11.3 H RBC 4.77 Hgb 12.5 L Hct 38.6 L MCV 80.9 MCH 26.2 MCHC 32.4 RDW 14.5 Plt Count 223 MPV 9.1 Immature Gran % (Auto) 0.8 H Neut % (Auto) 81.8 H Lymph % (Auto) 7.9 L [place] % (Auto) 8.5 Eos % (Auto) 0.7 Baso % (Auto) 0.3 Lymph # (Auto) 0.89 L [place] # (Auto) 1.0 H Eos # (Auto) 0.1 Baso # (Auto) 0.0 Abs Immat Gran (auto) 0.09 H Absolute Neuts (auto) 9.3 H Absolute Nucleated RBC 0.0 Nucleated RBC % 0.0 Sodium 141 Potassium 3.0 L Chloride 105 Carbon Dioxide 30 Anion Gap 6 L BUN 29 H Creatinine 1.10 Estim Creat Clear Calc 66 Estimated GFR > 60 Glucose 137 H POC Capillary Glucose 196 H Calcium 9.4 Phosphorus 2.5 Magnesium 2.7 H Total Bilirubin 0.5 AST 50 ALT 18 Alkaline Phosphatase 100 C-Reactive Protein 28.8 H Total Protein 6.0 L Albumin 3.3 L Vancomycin Trough 01/09/22 01/09/22 01/09/22 02:02 08:19 11:09 WBC RBC Hgb Hct MCV MCH MCHC RDW Plt Count MPV Immature Gran % (Auto) Neut % (Auto) Lymph % (Auto) [place] % (Auto) Eos % (Auto) Baso % (Auto) Lymph # (Auto) [place] # (Auto) Eos # (Auto) Baso # (Auto) Abs Immat Gran (auto) Absolute Neuts (auto) Absolute Nucleated RBC Nucleated RBC % Sodium Potassium Chloride Carbon Dioxide Anion Gap BUN Creatinine Estim Creat Clear Calc Estimated GFR Glucose POC Capillary Glucose 119 H 159 H Calcium Phosphorus Magnesium Total Bilirubin AST ALT Alkaline Phosphatase C-Reactive Protein Total Protein Albumin Vancomycin Trough 12.6 01/09/22 16:10 WBC RBC Hgb Hct MCV MCH MCHC RDW Plt Count MPV Immature Gran % (Auto) Neut % (Auto) Lymph % (Auto) [place] % (Auto) Eos % (Auto) Baso % (Auto) Lymph # (Auto) [place] # (Auto) Eos # (Auto) Baso # (Auto) Abs Immat Gran (auto) Absolute Neuts (auto) Absolute Nucleated RBC Nucleated RBC % Sodium Potassium Chloride Carbon Dioxide Anion Gap BUN Creatinine Estim Creat Clear Calc Estimated GFR Glucose POC Capillary Glucose 116 H Calcium Phosphorus Magnesium Total Bilirubin AST ALT Alkaline Phosphatase C-Reactive Protein Total Protein Albumin Vancomycin Trough
[2022-01-09 20:31] LABS: Glucose Point of Care 113 mg/dl (65-105)
[2022-01-09] MEDS: LIDOCAINE 5% PATCH 1 PATCH TRANSDERM (21:29)
[2022-01-09] MEDS: METOPROLOL SUCCINATE EXT REL 50 MG TABCR PO (21:29)
[2022-01-09] MEDS: traZODone HCL 50 MG TABLET 200 MG PO (21:30)
[2022-01-09] MEDS: ROSUVASTATIN 10 MG TABLET 40 MG PO (21:30)
[2022-01-10] VITALS (14 sets, daily range): BP systolic 126–162; BP diastolic 75–88; PULSE 108–117; RESP 20–22; TEMP 36.1–37.3; O2SAT 93–100
[2022-01-10] MEDS: traMADol HCL (*CRX) 25 MG TABLET PO ×2 (02:44→08:47)
[2022-01-10 06:15] LABS: Basophils Percent Auto 0.3 % (0.2-1.2); Eosinophils Absolute Auto 0.1 K/mm3 (0-0.3); Eosinophils Percent Auto 0.5 % (0-4.4); Hematocrit 39.5 % (42.0-52.0); Hemoglobin 12.5 g/dL (14.0-18.0); Immature Granulocyte Absolute 0.22 K/mm3 (0.00-0.031); Lymphocytes Absolute Auto 0.98 K/mm3 (0.9-3.2); Lymphocytes Percent Auto 8.9 % (18.3-44.2); Mean Corpuscular HGB Conc 31.6 g/dl (32-36); Mean Corpuscular Hemoglobin 26.6 pg (26-34); Mean Platelet Volume 9.3 fl (7.4-10.4); Monocytes Absolute Auto 1.2 K/mm3 (0.1-0.6); Monocytes Percent Auto 10.6 % (2.6-8.5); Neutrophils Absolute Auto 8.5 K/mm3 (1.3-6.7); Neutrophils Percent Auto 77.7 % (45.5-73.1); Platelet Count Result 236 k/mm3 (150-375); Red Cell Distribution Width 14.4 % (11.5-14.5)
[2022-01-10 06:30] LABS: Anion Gap 12 mmol/L (8-16); Blood Urea Nitrogen 20 mg/dL (9-20); Calcium 8.7 mg/dL (8.4-10.2); Carbon Dioxide 26 mmol/L (22-30); Chloride 102 mmol/L (98-107); Estimated CRCL calculation 73 ml/min; Estimated Glomerular Filt Rate > 60; Glucose 115 mg/dL (65-110); Potassium 3.7 mmol/L (3.4-5.0); Sodium 140 mmol/L (137-145)
[2022-01-10 07:42] LABS: Glucose Point of Care 217 mg/dl (65-105)
[2022-01-10] MEDS: INSULIN ASPART (*BKC) 100 UNITS/ML SUB-Q ×2 (08:32→12:15)
[2022-01-10] MEDS: ENOXAPARIN 40 MG/0.4 ML SYRINGE SUB-Q (08:34)
[2022-01-10] MEDS: FENOFIBRATE NANOCRYSTALLIZED 145 MG TABLET PO (08:34)
[2022-01-10] MEDS: lisinopriL 20 MG TABLET 40 MG PO (08:34)
[2022-01-10] MEDS: EMPAGLIFLOZIN 25 MG TABLET PO (08:34)
[2022-01-10] MEDS: FLUTICASONE PROPIONATE 0.05% NA SPR 16 GM BTL (*BKC) 2 SPRAY NASAL (08:35)
[2022-01-10] MEDS: polyethylene glycoL 3350 17 GM POWD.PACK PO (08:35)
[2022-01-10] MEDS: oxyCODONE HCL (*CRX) 10 MG TAB SR 12HR PO ×2 (08:36→21:45)
[2022-01-10] MEDS: FLUTICASONE/SALMETEROL 115-21 MCG INHALER 1 PUFF 2 PUFF INHALATION ×2 (08:49→20:36)
--- NOTE | 2022-01-10 10:25 | PCNFU ---
Nutrition Follow-Up Complete: acute moderate malnutrition related to chronic disease COPD(increased energy needs) and reduced PO intake as evidence by self report poor papetite and unintentional 22lbs (9%) wt loss in 1 month when diet advances and medcially appropriate, encourage meal intake 75% and complete intake of nutritional supplements Goal: goal not met, but progressing towards goal. average meal intake 63%. continue original goal to increase/encourage meal intake Pt current nutrition is diabetic consistent carbohydrate diet. Last recorded weight is 98.9 kg. Bowel Motility: last BM 01/08/2022 Labs Reviewed:Hgb: 12.5, Glu: 115 Meds Noted:ultram, desyrel, miralax, crestor, toporl, prinivil, lidoderm, tricor, lovenox, jardiance Skin:WNL Additional Notes: Pt appetite has improved. Daughters state that he has been eating much more compared to last week. they also report that he is consuming 100% of his glucerna shakes and he likes to drink it with ice (tolerating glucerna). follow up in 7 days monitor appetite, meal and nutritional supplement intake and tolerance, wt and labs.
--- NOTE | 2022-01-10 10:57 | PCNSR ---
On 01/10/22, the student, Maik Baldwin, provided care and completed [employer] [facility] this patient. I have reviewed the student's documentation and agree with the findings.
[2022-01-10 11:51] LABS: Glucose Point of Care 228 mg/dl (65-105)
--- NOTE | 2022-01-10 14:00 | PM.IMPN ---
Progress Note: A&P Assessment and Plan (1) Altered mental status: Code(s): R41.82 - Altered mental status, unspecified Status: Acute Assessment and Plan: Patient return from the EGD 01/07 and was alert and appropriate per nursing staff. He received his MS Contin after he returned and then became quite confused. Suspect his confusion is based on medications. Brain MRI 01/06 showed no acute findings. We stopped his MS Contin and held his narcotics for a few days until mental status improved. He did develop fever later in the day so sepsis could be causing his confusion. BCx repeated and abx adjusted to Vanco and Primaxin. BCx NGTD. He is much improved. Continue to follow. Continue current pain managment. (2) Postobstructive pneumonia: Code(s): J18.9 - Pneumonia, unspecified organism Status: Acute Assessment and Plan: CT chest showing post-obstructive PNA PHYLICIA on 01/02. CXR 01/05 showing stable opacities in the left mid and upper lung. He remains on O2 currently. BCx negative and repeat BCx remain NGTD. WBC up slightly. No fevers now. CXR 01/08 showing no change. O2 requirement slightly better. Wean O2 as tolerated. Encouraged patient to be out of bed as tolerated. Encouraged IS use. Change to oral abx tomorrow. Will . (3) Fever: Code(s): R50.9 - Fever, unspecified Status: Acute Assessment and Plan: As above (4) Mass of left lung: Code(s): R91.8 - Other nonspecific abnormal finding of lung field Status: Acute Assessment and Plan: CT of the chest showing no pulmonary emboli but does show airspace opacity in left upper lobe consistent with pneumonia. This is concerning for postobstructive pneumonia. Diffuse adenopathy noted as well. He has a left hilar mass consistent with primary bronchogenic carcinoma though path showing Adenocarcinoma with staining that points more to a GI source (lymph node biopsy performed on 01/03/2022 with path showing adenocarcinoma). EGD did not show any concerns for GI cancer. Oncology is following. PET scan planned for outpatient. (5) Lytic bone lesions on xray: Code(s): M89.9 - Disorder of bone, unspecified Status: Acute Assessment and Plan: Patient appears to have diffuse metastatic cancer to the bone that has resulted in pathologic fractures of T2, burst T3, left T9 transverse process, T11, L1, L2 and left 1st rib. Patient has significant bone pain. This is most likely etiology of his hypercalcemia. The pain is causing the tachycardia and elevated BP. No PE by CTA; no DVT by doppler. Brain MRI showing no metastasis (noncontrast). No significant spinal impingement in MRI of the C/T/L/S. Neurosurgery was consulted and appreciate his input. Continue heating pad and Lidoderm patches. Continue Tylenol and ultram. Oxycontin added and he appears to be tolerating this better. Increase activity as tolerated. Continue PT/OT. (6) Adenocarcinoma: Code(s): C80.1 - Malignant (primary) neoplasm, unspecified Status: Acute Assessment and Plan: Pathology returned as adenocarcinoma. Spoke with pathologist on 01/06/2022 felt that this might be a GI source of cancer. EGD showed nonerosive reflux disease and gastric retention. No evidence of malignancy. SPEP and UPEP have been ordered. Patient and family have been updated. Oncology was consulted and appreciate their input. (7) Hypercalcemia: Code(s): E83.52 - Hypercalcemia Status: Acute Assessment and Plan: Calcium elevated on admission and had remained elevated despite IV fluids. Vit D level normal. Zoledronic acid once 01/06. Calcium level back down to normal (8) Essential hypertension: Code(s): I10 - Essential (primary) hypertension Status: Acute Assessment and Plan: Patient's blood pressure was reviewed on 01/10 Blood pressure elevated at times possibly related to pain Will continue his curr
[2022-01-10 15:45] LABS: Vancomycin Trough 12.1 ug/mL (10.0-20.0)
[2022-01-10 16:38] LABS: Glucose Point of Care 189 mg/dl (65-105)
[2022-01-10 16:47] LABS: CA 19-9 21 U/mL (<34)
[2022-01-10 18:12] LABS: Albumin 2.9 g/dL (3.8-4.8); Alpha 1 Globulin 0.7 g/dL (0.2-0.3); Alpha 2 Globulin 1.3 g/dL (0.5-0.9); Beta 1 Globulin 0.4 g/dL (0.4-0.6); Gamma Globulin 0.7 g/dL (0.8-1.7); Protein, Total 6.2 g/dL (6.1-8.1)
[2022-01-10] MEDS: ROSUVASTATIN 10 MG TABLET 40 MG PO (21:45)
[2022-01-10] MEDS: traZODone HCL 50 MG TABLET 200 MG PO (21:45)
[2022-01-10] MEDS: METOPROLOL SUCCINATE EXT REL 50 MG TABCR PO (21:45)
[2022-01-10] MEDS: INSULIN GLARGINE (*BKC) 100 UNITS/ML 30 UNITS SUB-Q (21:45)
[2022-01-10] MEDS: LIDOCAINE 5% PATCH 1 PATCH TRANSDERM (21:45)
[2022-01-10 23:45] LABS: Glucose Point of Care 186 mg/dl (65-105)
[2022-01-11] VITALS (13 sets, daily range): BP systolic 129–179; BP diastolic 66–93; PULSE 109–117; RESP 21–22; TEMP 36–36.3; O2SAT 87–96
[2022-01-11] MEDS: MORPHINE SULFATE (*CRX) 2 MG/ML INJ 1 MG IV PUSH (05:43)
[2022-01-11 06:48] LABS: Basophils Absolute Auto 0.1 K/mm3 (0.0-0.1); Basophils Percent Auto 0.4 % (0.2-1.2); Eosinophils Percent Auto 0.3 % (0-4.4); Hematocrit 38.8 % (42.0-52.0); Hemoglobin 12.4 g/dL (14.0-18.0); Immature Granulocyte Absolute 0.27 K/mm3 (0.00-0.031); Immature Granulocyte Percent A 2.3 % (0-0.5); Lymphocytes Absolute Auto 1.01 K/mm3 (0.9-3.2); Lymphocytes Percent Auto 8.6 % (18.3-44.2); Mean Corpuscular Hemoglobin 26.3 pg (26-34); Mean Corpuscular Volume 82.2 fl (80-100); Mean Platelet Volume 9.2 fl (7.4-10.4); Monocytes Absolute Auto 1.4 K/mm3 (0.1-0.6); Monocytes Percent Auto 11.7 % (2.6-8.5); Neutrophils Percent Auto 76.7 % (45.5-73.1); Platelet Count Result 297 k/mm3 (150-375); Red Blood Count 4.72 M/mm3 (4.6-6.20); Red Cell Distribution Width 14.5 % (11.5-14.5); White Blood Count 11.7 K/mm3 (4.5-10.0)
[2022-01-11 07:17] LABS: Alanine Aminotransferase 24 U/L (6-50); Albumin Level 3.5 g/dL (3.5-5.1); Alkaline Phosphatase 106 U/L (38-126); Anion Gap 15 mmol/L (8-16); Aspartate Amino Transferase 55 U/L (17-59); Blood Urea Nitrogen 23 mg/dL (9-20); Calcium 8.2 mg/dL (8.4-10.2); Carbon Dioxide 26 mmol/L (22-30); Chloride 101 mmol/L (98-107); Estimated CRCL calculation 89 ml/min; Estimated Glomerular Filt Rate > 60; Glucose 135 mg/dL (65-110); Potassium 3.5 mmol/L (3.4-5.0); Sodium 142 mmol/L (137-145)
[2022-01-11 07:23] LABS: Glucose Point of Care 143 mg/dl (65-105)
[2022-01-11] MEDS: FLUTICASONE/SALMETEROL 115-21 MCG INHALER 1 PUFF 2 PUFF INHALATION (08:14)
[2022-01-11] MEDS: FENOFIBRATE NANOCRYSTALLIZED 145 MG TABLET PO (09:22)
[2022-01-11] MEDS: traMADol HCL (*CRX) 25 MG TABLET PO (09:25)
[2022-01-11] MEDS: FLUTICASONE PROPIONATE 0.05% NA SPR 16 GM BTL (*BKC) 2 SPRAY NASAL (09:26)
[2022-01-11] MEDS: ENOXAPARIN 40 MG/0.4 ML SYRINGE SUB-Q (09:27)
[2022-01-11] MEDS: EMPAGLIFLOZIN 25 MG TABLET PO (09:27)
[2022-01-11] MEDS: polyethylene glycoL 3350 17 GM POWD.PACK PO (09:27)
[2022-01-11] MEDS: lisinopriL 20 MG TABLET 40 MG PO (09:27)
[2022-01-11] MEDS: oxyCODONE HCL (*CRX) 10 MG TAB SR 12HR PO (09:34)
[2022-01-11] MEDS: DOXYCYCLINE HYCLATE 100 MG TABLET PO (10:45)
[2022-01-11] MEDS: AMOXICILLIN/CLAVULANATE K 875-125 MG TAB 1 TABLET PO (10:45)
[2022-01-11 11:18] LABS: Glucose Point of Care 227 mg/dl (65-105)
[2022-01-11] MEDS: INSULIN ASPART (*BKC) 100 UNITS/ML SUB-Q (11:57)
--- NOTE | 2022-01-11 12:56 | PM.DS ---
DS: Admitting Diagnosis Discharge Date January 11, 2022 Admitting Diagnosis cancer of unknown origin DS: Discharge Diagnosis Discharge Diagnosis (1) Altered mental status: Code(s): R41.82 - Altered mental status, unspecified Status: Acute Assessment and Plan: improved (2) Postobstructive pneumonia: Code(s): J18.9 - Pneumonia, unspecified organism Status: Acute Assessment and Plan: IV switched to oral antibiotics For discharge. (3) Fever: Code(s): R50.9 - Fever, unspecified Status: Acute Assessment and Plan: resolved (4) Mass of left lung: Code(s): R91.8 - Other nonspecific abnormal finding of lung field Status: Acute Assessment and Plan: workup pending. Patient will get a PET scan on discharge follow-up with Oncology Dr. Lagos (5) Lytic bone lesions on xray: Code(s): M89.9 - Disorder of bone, unspecified Status: Acute Assessment and Plan: metastatic disease. (6) Adenocarcinoma: Code(s): C80.1 - Malignant (primary) neoplasm, unspecified Status: Acute Assessment and Plan: Pathology returned as adenocarcinoma. PET scan tomorrow follow-up oncology (7) Hypercalcemia: Code(s): E83.52 - Hypercalcemia Status: Acute Assessment and Plan: Calcium elevated on admission and had remained elevated despite IV fluids. Vit D level normal. Zoledronic acid once 01/06. Calcium level back down to normal (8) Essential hypertension: Code(s): I10 - Essential (primary) hypertension Status: Acute Assessment and Plan: continue home meds monitor on discharge (9) Type 2 diabetes mellitus: Code(s): E11.9 - Type 2 diabetes mellitus without complications Status: Acute Assessment and Plan: and resume diabetic medications on discharge. (10) Obstructive sleep apnea on CPAP: Code(s): G47.33 - Obstructive sleep apnea (adult) (pediatric); Z99.89 - Dependence on other enabling machines and devices Status: Acute Assessment and Plan: CPAP ordered but not using. Encourage compliance. (11) Pathologic lumbar vertebral fracture: Code(s): M84.48XA - Pathological fracture, other site, initial encounter for fracture Status: Acute Assessment and Plan: As above (12) Mediastinal lymphadenopathy: Code(s): R59.0 - Localized enlarged lymph nodes Status: Acute Assessment and Plan: as above. DS: Summary Hospital Course Hospital Course: Patient is a 71-year-old gentleman who came in with a lung mass and obstructive pneumonia and lymphadenopathy and metastatic disease. He underwent a biopsy of the lymph node which showed adenocarcinoma which was not well we are expecting. We were expecting a primary bronchogenic carcinoma and he underwent a GI workup and we were unable to find any GI cancer. CA 19 has been ordered by Oncology. Patient will get a PET scan tomorrow. He will need be outpatient for this he will be discharged as he is stable today for discharge. He will also follow-up Oncology. Appreciate Oncology input Time Spent with Patient Time attestation: Total time spent providing and/or coordinating discharge services: Exam Narrative: AF 97.9 126/76 112 20 93% 3L Gen - NARD lying semi-recumbent in bed Chest - scattered rhonchi. nml RR CV - RRR S1/S2; Tele showing brief runs of probable ATach Abd - Soft, protuberant, NT, +BS Ext - No pedal edema. Psych - awake, alert, mild garbled speech Skin - warm and dry DS: Data Data Completed and Pending Labs on day of discharge: Labs from last 24 hours 01/11/22 01/11/22 01/11/22 11:12 07:19 06:29 WBC RBC Hgb Hct MCV MCH MCHC RDW Plt Count MPV Immature Gran % (Auto) Neut % (Auto) Lymph % (Auto) Cuming % (Auto) Eos % (Auto) Baso % (Auto) Lymph
--- NOTE | 2022-01-11 15:05 | HOMEO2EVAL ---
Evaluation was performed at [facility] Home Oxygen Evaluation RC: Home Oxygen (O2) Evaluation Start: 01/11/22 13:01 Freq: ONCE Status: Active Protocol: RPE Activity Type Activity Date Activity User E-sign Co-sign Detail Recorded Client Recorded Date Recorded By Document 01/11/22 14:30 KRM [email or web address] 01/11/22 15:05 KRM Document 01/11/22 14:32 [email or web address] [email or web address] 01/11/22 15:05 KRM Document 01/11/22 14:33 KRM [email or web address] 01/11/22 15:05 KRM Document 01/11/22 14:40 [email or web address] [email or web address] 01/11/22 15:05 KRM 01/11/22 01/11/22 01/11/22 14:30 14:32 14:33 Home O2 Evaluation [Oxygen] -Test Phase Resting Resting Resting -Oxygen Delivery Room Air Nasal Cannula Nasal Cannula -Oxygen Flow Rate (L/min) 1 2 [Pulse Oximetry] -Pulse Oximetry (90-100 %) 87 L 89 L 94 [Pulse Rate] -Pulse Rate (60-100 beats/min) 111 H 111 H 114 H [Evaluation] -Activity Tolerance [Exercise] -Ambulation Distance (feet) -Ambulation Distance (meters) [Comments] -Home Oxygen Evaluation Comments [Charges] -Treatment Charges 01/11/22 14:40 Home O2 Evaluation [Oxygen] -Test Phase Exercise -Oxygen Delivery Nasal Cannula -Oxygen Flow Rate (L/min) 2 [Pulse Oximetry] -Pulse Oximetry (90-100 %) 94 [Pulse Rate] -Pulse Rate (60-100 beats/min) 114 H [Evaluation] -Activity Tolerance Fair [Exercise] -Ambulation Distance (feet) 25 -Ambulation Distance (meters) 7.61 [Comments] -Home Oxygen Evaluation Comments 2lpm at rest and with activity. [Charges] -Treatment Charges O2 Evaluation - Inpatient
[2022-01-11] MEDS: NEOMYCIN/POLYMYXIN/BACITRACIN OINTMENT PACKET 1 PACKET (16:22)
[2022-01-12 19:03] LABS: Parathyroid Hormone Related Pr 13 pg/mL (11-20)
--- NOTE | 2022-01-18 11:10 | PCRCNOTE ---
PT. HOME O2 EVAL COMPLETE, PT REQUIRES 2 LITERS AT REST AND WITH ACTIVITY. HOME EQUIPMENT SET UP WITH [facility] [employer], PHONE NUMBER [phone]
== END 2022-01-11 16:40 | disposition home health service (06) | DRG 515 ==
LOC: ANHED 11:29 → ANH3MEDSUR 13:03
PROVIDERS: Internal Medicine; Internal Medicine Gastroenterology; Physician Assistant; Admitting Provider Chiropractor; Emergency Provider Emergency Medicine; PCP Family Medicine; Visit Provider Chiropractor
PROC: 0DJ08ZZ Inspection of Upper Intestinal Tract, Via Natural or Artificial Opening Endoscopic (ICD-10-PCS; CPT 43235; principal; 2022-01-07 07:30)
DX: C79.51 Secondary malignant neoplasm of bone (principal); J18.9 Pneumonia, unspecified organism; M84.58XA Pathological fracture in neoplastic disease, other specified site, initial encounter for fracture; C80.1 Malignant (primary) neoplasm, unspecified; R91.8 Other nonspecific abnormal finding of lung field; R63.4 Abnormal weight loss; K21.9 Gastro-esophageal reflux disease without esophagitis; K31.89 Other diseases of stomach and duodenum; E83.42 Hypomagnesemia; R59.0 Localized enlarged lymph nodes; I25.10 Atherosclerotic heart disease of native coronary artery without angina pectoris; I10 Essential (primary) hypertension; E78.1 Pure hyperglyceridemia; E83.52 Hypercalcemia; E11.9 Type 2 diabetes mellitus without complications; G47.33 Obstructive sleep apnea (adult) (pediatric); R41.82 Altered mental status, unspecified; R50.9 Fever, unspecified; Z20.822 Contact with and (suspected) exposure to COVID-19; Z99.89 Dependence on other enabling machines and devices; Z87.891 Personal history of nicotine dependence; Z79.82 Long term (current) use of aspirin; Z79.4 Long term (current) use of insulin; Z85.828 Personal history of other malignant neoplasm of skin
CPT/HCPCS: 36415; 36600; 38505; 70450; 70551; 71045; 71275; 72072; 72125; 72129; 72132; 72141; 72146; 72148; 74177; 76942; 80048; 80053; 80202; 81001; 82306; 82652; 82805; 82948; 83036; 83519; 83605; 83690; 83735; 83970; 84100; 84155; 84165; 84443; 84484; 85025; 85380; 85610; 85652; 85730; 86140; 86301; 87040; 88305; 88313; 88342; 92610; 93005; 93970; 94618; 94640; 96361; 96365; 96367; 96375; 96376; 97110; 97116; 97161; 97165; 97530; 97535; 99285; A9270; C9803; G0378; J0131; J0456; J0696; J0743; J1650; J1815; J2212; J2270; J2543; J2704; J3370; J3480; J3489; J7030; J7120; Q9967; U0003; U0005

== ENCOUNTER 2022-01-26 10:19 | Emergency (ER) | payer MEDICARE, OTHER, SELFPAY ==
--- NOTE | 2022-01-26 10:01 | ED.CPR ---
HPI - CPR General Chief Complaint: Cardiac Arrest/CPR Stated Complaint: cardiac arrest Source: EMS Mode of arrival: EMS Limitations: clinical condition and other History of Present Illness HPI narrative: Patient is a 71-year-old male with a history of metastatic adenocarcinoma presenting to the emergency department via EMS as a witnessed cardiac arrest. Patient reportedly became unresponsive this morning. Bystander CPR was initiated. Patient reportedly was found to be pulseless, then an intraosseous line was placed, patient was administered epinephrine. Patient was noted to be hypoglycemic to 38 so D10 infusion was initiated. Patient then in pulseless electrical activity rate in the 30s to 40s. Family on scene did not wish for the patient to be intubated. Patient arrived with CPR in progress, BVM and oral airway in place. Reportedly, patient was going to have a hospice consult this morning. Related Data Home Medications Medication Instructions Recorded Confirmed aspirin 81 mg tablet,delayed 81 mg PO DAILY 02/24/19 01/20/22 release (Adult Aspirin Regimen) empagliflozin 25 mg tablet 25 mg PO DAILY 01/02/22 01/20/22 (Jardiance) fenofibrate nanocrystallized 145 145 mg PO DAILY 01/02/22 01/20/22 mg tablet metoprolol succinate 50 mg 50 mg PO HS 01/02/22 01/20/22 tablet,extended release 24 hr dexamethasone 4 mg tablet 4 mg PO BID 01/20/22 01/20/22 hydrocodone 5 mg-acetaminophen 325 1 tablet PO Q6-8H PRN Pain 01/20/22 01/20/22 mg tablet insulin glargine U-300 conc 300 90 unit subcut DAILY 01/20/22 01/20/22 unit/mL (3 mL) subcutaneous pen (Toujeo Max U-300 SoloStar) ondansetron HCl 8 mg tablet 8 mg PO Q8-10H PRN Nausea 01/20/22 01/20/22 trazodone 100 mg tablet 200 mg PO HS 01/20/22 01/20/22 Allergies Allergy/AdvReac Type Severity Reaction Status Date / Time No Known Allergies Allergy Verified 01/25/22 09:06 Review of Systems Review of Systems: ROS unobtainable: Yes unobtainable due to medical condition PMFSH Past Medical History Medical History Basal cell carcinoma, face Essential hypertension Hypertension Hypertriglyceridemia Neurogenic claudication due to lumbar spinal stenosis Obstructive sleep apnea Obstructive sleep apnea on CPAP Peripheral vascular disease Type 2 diabetes mellitus Surgical History Surgical History History of colonoscopy with polypectomy History of hernia repair History of intravascular stent placement Bilateral iliac stents. Family History Family History Father Family history of cardiovascular disease Mother No problems noted. Other Diabetes mellitus Family history of Alzheimer's disease Hypertension Social History Social History Social History: Surrogate medical decision maker: Evelin Hong, . Code status: Full code. Smoking packs per day: 2 Smoking cigarettes per day: 40.0 Years smoked: 30 Smoking pack-years: 60.00 Smoking status: Former smoker Tobacco type: cigarettes Smoking end date: 03/26/99 Alcohol intake: current Drinks per week: 7 Substance use: never Additional living arrangements comments: The patient lives with his in [place]. They have 2 daughters. 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 Spiritual care concerns: No Exam Narrative: GENERAL: Unconscious, unresponsive HEAD: Normocephalic, atraumatic. EYES: Pupils fixed at 2 mm ENT: Nares clear, no rhinorrhea or epistaxis. Mucous membranes dry NECK: Supple. CHEST: Upper airway in place, no spontaneous respirations HEART: Pulseless electrical activity, no central or peripheral pulses palpated ABDOMEN:Non distended EXTREMITIES: No spontaneous range of motion SKIN: Cool,
--- NOTE | 2022-01-26 11:23 | PC.NURSE ---
Per Amor with [facility] patient is not a candidate for organ donation. REF [id number] Senior Accounting Specialist has released the body to the Home. Home ([facility] in [place], [place]) notified by this RN.
--- NOTE | 2022-01-26 11:37 | PC.NURSE ---
Family notified this RN that they were leaving dept.
== END 2022-01-26 11:40 | disposition expired ==
PROVIDERS: Emergency Provider Emergency Medicine; PCP Family Medicine
DX: I46.9 Cardiac arrest, cause unspecified (principal); I10 Essential (primary) hypertension; E11.9 Type 2 diabetes mellitus without complications; Z79.891 Long term (current) use of opiate analgesic; Z79.82 Long term (current) use of aspirin; Z79.4 Long term (current) use of insulin; Z85.828 Personal history of other malignant neoplasm of skin; Z87.891 Personal history of nicotine dependence
CPT/HCPCS: 92950; 99285; J0171